=== PATIENT | female | born 1970 | race Caucasian/White ===

== ENCOUNTER → 2021-08-18 11:08 | Outpatient (CLI) | payer BC, SELFPAY ==
[2021-08-18 12:26] LABS: Color, Urine Yellow (Yellow); Glucose, Dipstick Normal (Normal); Ketone-Dipstick Negative (Negative); Leukocyte Esterase-Dipstick Negative /ul (Negative); Nitrite-Dipstick Negative (Negative); Occult Blood-Urine 250 /ul (Negative); Protein-Dipstick 30 mg/dl (Negative); Specific Gravity, Urine 1.015 (1.002-1.030); Urine Bilirubin Dipstick Negative (Negative); Urine Clarity Cloudy (Clear); Urine Urobilinogen Normal (Normal)
[2021-08-18 12:27] LABS: Absolute Lymphocyte Count 1.69 X10^3/uL (0.83-4.51); Basophil# 0.04 X10^3/uL; Basophil% 0.4 % (0-1); Eosinophil# 0.05 X10^3/uL; Eosinophils% 0.5 % (0-5); Hematocrit 41.2 % (37-47); Hemoglobin 13.4 g/dL (12.0-15.0); Lymphocyte # 1.69 X10^3/ul (0.83-4.51); Lymphocyte % 18.4 % (19-41); Mean Corp Hgb Conc 32.5 g/dL (32-36); Mean Corpuscular Hgb 27.6 pg (27.0-32.0); Mean Corpuscular Volume 84.9 fL (81-99); Mean Platelet Vol. 10.3 fl (6.2-12.0); Monocyte% 4.3 % (0-10); NRBC Flagged by Analyzer 0 % (0-5); Neutrophil # 6.98 X10^3/uL (2.7-7.7); Platelet Count 262 K/mm3 (150-450); RBC Distribution Width CV 14.1 % (11.6-14.6); RBC Distribution Width SD 43.4 fl (35.1-43.9); Red Blood Count 4.85 M/mm3 (4.2-5.4); White Blood Count 9.2 K/mm3 (4.4-11.0)
[2021-08-18 12:36] LABS: Bacteria 1+ /hpf (None Seen); Mucous, Urine 1+ /hpf (<or=2+); Red Blood Cells-Urine 5-10 SEEN /hpf (0-5); Squamous Epithelial Cells - UA 0-5 SEEN /hpf (5-10); White Blood Cells 0-5 SEEN /hpf (0-5)
[2021-08-18 12:59] LABS: ALB/GLOB Ratio 0.9 RATIO (0.9-2.4); AST(SGOT) 17 U/L (15-37); Alanine Aminotransfer ALT/SGPT 25 U/L (13-56); Albumin, Serum 3.7 g/dL (3.2-5.0); Alkaline Phosphatase 73 U/L (45-117); Anion Gap 7 (5-15); BUN 16 mg/dL (7-18); BUN/Creat Ratio 16.7 RATIO (10-20); Calcium,Total 8.8 mg/dL (8.5-10.1); Chloride 104 mmol/L (98-107); Cholesterol 224 mg/dL (200); Creatinine, Serum 0.96 mg/dL (0.55-1.02); EST Glomerular Filtration Rate 65 mL/min (>60); Est Glom Filt Rate - Afr Amer 79 mL/min (>60); Globulin 4.1 g/dL (2.2-4.2); Glucose 81 mg/dL (74-106); High Density Lipoprotein 41 mg/dL; Potassium 4.1 mmol/L (3.5-5.1); Protein, Total 7.8 g/dL (6.4-8.2); Sodium Level 139 mmol/L (136-145); Triglycerides 241 mg/dL; Very Low Density Lipoprotein 48 mg/dL (5-40)
== END ==
PROVIDERS: PCP Internal Medicine; Referring Provider Internal Medicine; Visit Provider Internal Medicine
DX: Z00.00 Encounter for general adult medical examination without abnormal findings (principal)
CPT/HCPCS: 36415; 80053; 80061; 81001; 85025

== ENCOUNTER → 2021-10-06 07:20 | Outpatient (CLI) | payer BC, SELFPAY ==
--- NOTE | 2021-10-06 07:32 | BI_ITS ---
MAMMOGRAPHY - BILATERAL SCREENING REASON FOR EXAM: Female, 51 years old. Routine annual screening examination. PERTINENT HISTORY: Mother with breast cancer. Grandmother with breast cancer. TECHNIQUE: Digital bilateral breast devin (3D mammographic acquisition) in the CC and MLO projections. 2-D mediolateral oblique (MLO) and craniocaudad (CC) views of both breasts were obtained. CAD: Full Field Digital Mammography with Computer Added Detection was performed. COMPARISON: Comparison is made with prior study dated 09/22/2020. FINDINGS: Breast Composition: There are scattered areas of fibroglandular density. There are no dominant masses or suspicious calcifications. No other significant abnormalities are identified. There has been no significant change since the prior study. BI/SCRN MAMM (CAD)W/DEVIN BILAT IMPRESSION: Stable bilateral screening mammogram. Yearly follow-up mammogram recommended. (A) ASSESSMENT CATEGORY: BIRADS Category 1: Negative. A letter regarding these results will be sent to the patient by the facility within 30 days. Approximately 10% of breast cancers are not detected by mammography. A normal mammogram should not delay biopsy of a clinically suspicious abnormality. [id number] Electronically Signed: Sánchez Crocker MD at 13:47 EST , Service support ,
== END ==
PROVIDERS: PCP Internal Medicine; Referring Provider Internal Medicine; Visit Provider Internal Medicine
DX: Z12.31 Encounter for screening mammogram for malignant neoplasm of breast (principal)
CPT/HCPCS: 77063; 77067

== ENCOUNTER → 2022-04-13 | Outpatient (CLI) | payer BC, SELFPAY ==
[2022-04-13 12:32] LABS: Anion Gap 4 (5-15); BUN 23 mg/dL (7-18); BUN/Creat Ratio 21.3 RATIO (10-20); Calcium,Total 9.1 mg/dL (8.5-10.1); Chloride 107 mmol/L (98-107); Creatinine, Serum 1.08 mg/dL (0.55-1.02); EST Glomerular Filtration Rate 57 mL/min (>60); Est Glom Filt Rate - Afr Amer 69 mL/min (>60); Glucose 97 mg/dL (74-106); Sodium Level 138 mmol/L (136-145)
== END | disposition home or self-care (01) ==
LOC: BIMLAB 08:25
PROVIDERS: PCP Internal Medicine; Referring Provider Internal Medicine; Visit Provider Internal Medicine
DX: I10 Essential (primary) hypertension (principal)
CPT/HCPCS: 36415; 80048

== ENCOUNTER → 2022-08-27 | Outpatient (CLI) | payer BC, SELFPAY ==
[2022-08-27 12:12] LABS: Absolute Lymphocyte Count 1.75 X10^3/uL (0.83-4.51); Absolute Neutrophil Count 3.7 X10^3/uL (2.0-7.7); Basophil# 0.05 X10^3/uL; Basophil% 0.8 % (0-1); Eosinophil# 0.06 X10^3/uL; Hematocrit 40.8 % (37-47); Hemoglobin 13.1 g/dL (12.0-15.0); Lymphocyte # 1.75 X10^3/ul (0.83-4.51); Lymphocyte % 29.5 % (19-41); Mean Corp Hgb Conc 32.1 g/dL (32-36); Mean Corpuscular Hgb 28.5 pg (27.0-32.0); Mean Corpuscular Volume 88.7 fL (81-99); Mean Platelet Vol. 10.4 fl (6.2-12.0); Monocyte# 0.31 X10^3/uL; Monocyte% 5.2 % (0-10); NRBC Flagged by Analyzer 0 % (0-5); Neutrophil # 3.74 X10^3/uL (2.7-7.7); Neutrophil % 63.2 % (47-70); Platelet Count 290 K/mm3 (150-450); RBC Distribution Width CV 14.6 % (11.6-14.6); RBC Distribution Width SD 46.9 fl (35.1-43.9); White Blood Count 5.9 K/mm3 (4.4-11.0)
[2022-08-27 12:23] LABS: ALB/GLOB Ratio 0.8 RATIO (0.9-2.4); AST(SGOT) 28 U/L (15-37); Alanine Aminotransfer ALT/SGPT 38 U/L (13-56); Albumin, Serum 3.5 g/dL (3.2-5.0); Alkaline Phosphatase 81 U/L (45-117); Anion Gap 8 (5-15); BUN 20 mg/dL (7-18); Calcium,Total 9.1 mg/dL (8.5-10.1); Chloride 104 mmol/L (98-107); Cholesterol 191 mg/dL (200); Creatinine, Serum 1.05 mg/dL (0.55-1.02); EST Glomerular Filtration Rate 59 mL/min (>60); Est Glom Filt Rate - Afr Amer 71 mL/min (>60); Globulin 4.2 g/dL (2.2-4.2); Glucose 93 mg/dL (74-106); High Density Lipoprotein 37 mg/dL; Potassium 3.8 mmol/L (3.5-5.1); Protein, Total 7.7 g/dL (6.4-8.2); Sodium Level 139 mmol/L (136-145); Triglycerides 229 mg/dL; Very Low Density Lipoprotein 46 mg/dL (5-40)
== END | disposition home or self-care (01) ==
LOC: BIMLAB 08:27
PROVIDERS: PCP Internal Medicine; Referring Provider Internal Medicine; Visit Provider Internal Medicine
DX: Z00.00 Encounter for general adult medical examination without abnormal findings (principal)
CPT/HCPCS: 36415; 80053; 80061; 85025

== ENCOUNTER → 2022-10-19 | Outpatient (CLI) | payer BC, SELFPAY ==
--- NOTE | 2022-10-19 07:16 | BI_ITS ---
MAMMOGRAPHY - BILATERAL SCREENING REASON FOR EXAM: Female, 52 years old. Routine annual screening examination. PERTINENT HISTORY: Mother with breast cancer. Grandmother with breast cancer. TECHNIQUE: Digital bilateral breast devin (3D mammographic acquisition) in the CC and MLO projections. 2-D mediolateral oblique (MLO) and craniocaudad (CC) views of both breasts were obtained. CAD: Full Field Digital Mammography with Computer Added Detection was performed. COMPARISON: Comparison is made with prior study dated 10/06/2021. FINDINGS: Breast Composition: There are scattered areas of fibroglandular density. There are no dominant masses or suspicious calcifications. No other significant abnormalities are identified. There has been no significant change since the prior study. BI/SCRN MAMM (CAD)W/DEVIN BILAT IMPRESSION: Stable bilateral screening mammogram. Yearly follow-up mammogram recommended. (A) ASSESSMENT CATEGORY: BIRADS Category 1: Negative. A letter regarding these results will be sent to the patient by the facility within 30 days. Approximately 10% of breast cancers are not detected by mammography. A normal mammogram should not delay biopsy of a clinically suspicious abnormality. [id number] Electronically Signed: Sánchez Crocker MD at 9:06 EST ,
== END | disposition home or self-care (01) ==
PROVIDERS: PCP Internal Medicine; Referring Provider Internal Medicine; Visit Provider Internal Medicine
DX: Z12.31 Encounter for screening mammogram for malignant neoplasm of breast (principal); Z80.3 Family history of malignant neoplasm of breast
CPT/HCPCS: 77063; 77067

== ENCOUNTER → 2022-11-23 | Outpatient (CLI) | payer BC, SELFPAY ==
[2022-11-29 21:51] LABS: HPV APTIMA, High Risk Negative (Negative)
== END | disposition home or self-care (01) ==
LOC: LABSPEC 16:11
PROVIDERS: PCP Internal Medicine; Visit Provider Obstetrics & Gynecology
DX: Z12.4 Encounter for screening for malignant neoplasm of cervix (principal)
CPT/HCPCS: 87624; 88175; G0145

== ENCOUNTER → 2022-11-30 | Outpatient (CLI) | payer BC, SELFPAY | END | disposition home or self-care (01) | PROVIDERS: PCP Internal Medicine; Referring Provider Internal Medicine; Visit Provider Internal Medicine | DX: R05.9 Cough, unspecified (principal) | CPT/HCPCS: 87635; U0003; U0005 ==

== ENCOUNTER → 2023-03-08 | Outpatient (CLI) | payer BC, SELFPAY ==
[2023-03-08 12:13] LABS: Anion Gap 2 (5-15); BUN 19 mg/dL (7-18); Calcium,Total 8.9 mg/dL (8.5-10.1); Chloride 109 mmol/L (98-107); EST Glomerular Filtration Rate 62 mL/min (>60); Est Glom Filt Rate - Afr Amer 75 mL/min (>60); Glucose 106 mg/dL (74-106); Potassium 4.2 mmol/L (3.5-5.1); Sodium Level 139 mmol/L (136-145)
== END | disposition home or self-care (01) ==
LOC: BIMLAB 08:59
PROVIDERS: PCP Internal Medicine; Referring Provider Internal Medicine; Visit Provider Internal Medicine
DX: I10 Essential (primary) hypertension (principal)
CPT/HCPCS: 36415; 80048

== ENCOUNTER → 2023-12-27 | Outpatient (CLI) | payer BC, SELFPAY ==
--- OUTSIDE RECORDS SUMMARY | 2023-12-27 16:36 | XMS RPT_ITS | CCD ---
Author Name Unknown Address [address] [place] [address] Organization [facility] Care Team Providers Care Loss Prevention Lead Name Role Phone Unavailable Primary Care Provider Unavailabl e Results Test Name Value Interpretation Reference Range Facil ity Encounters Encounter Date Encounter Type Care Provider Facility Start: 09-28-2021 Patient encounter procedure Kiarra Guzman MD Work Phone: [facility] Start: 09-28-2021 Progress Note Kiarra cornejo MD Work Phone: [facility] Procedures Date Procedure Procedure Detail Performing Clinician Start: 09-26-2021 Ecg routine ecg w/le ast 12 lds i&r only Social History Date Type Detail Facility Tobacco smoking stat [facility] Tobacco smoking consumption unknown [facility] Start: 1970 Sex Assigned At Not on file [facility] History of Present illness Narrative 09-28-2021 Kiarra Guzman MD - 09/28/2021 12:35 PM EST Note Date & Type Note Facility 09-28-2021 History of Present illness Narrative DATE OF SERVICE: 09/26/2021 SUBJECTIVE: A 51-year-old with history of asthma and high blood pressure who presents for high blood pressure at home, racing heart rate, headache, a little bit of dizziness. It has been going for a week. She noticed the past weekend the bottom number of her blood pressure was high. It would go up to at least 100 but the top number, the systolic was in the 130s. She experienced a racing heart rate this morning. Upon further questioning she did use her albuterol inhaler as well this morning. She has a little chest congestion and a little cough productive of clear sputum. The dizziness has been going on on and off for the past week as well as well as a headache and usually Tylenol helps the headache. REVIEW OF SYSTEMS: Otherwise negative unless stated above. ALLERGIES: SULFA, PENICILLIN. MEDICATIONS: 1. Tylenol. 2. Lisinopril. 3. Albuterol. 4. Stress tension relief. OBJECTIVE: Blood pressure is 161/85, pulse is 105, respirations 20, temperature is 99.3, pulse ox 99%. Ears within normal limits. Mouth; nonerythematous oropharynx. Neck: No lymphadenopathy. Heart: Regular, rate, and rhythm. Lungs: Clear to auscultation bilaterally. DIAGNOSIS: 1. High blood pressure. 2. Tachycardia. PLAN: EKG showed normal sinus rhythm. Her ventricular rate was 91. I told her to continue with tqbs-phl-bpeksiq medications for congestion. She also needs to follow with her primary care doctor if her blood pressure has been high recently. They may need to increase her current blood pressure medication dose. Also, educated the patient on the use of albuterol and how it can make her heart race. The patient was not aware of this. She says that she does not use often either. Kprl-hwu-bpbxiff medication for her symptoms and follow up with primary care doctor as soon as possible for followup of hypertension. Kiarra Guzman MD ED/[id number] [facility] File#: [id number] END OF DOCUMENT / CHANGE LOG FOLLOWS Last Edited By [employer]. Signed By Kiarra Guzman MD, Eleni MD #[email or web address] on 09/29/2021 07:56 ET on 09/29/2021 07:56 ET Revision Number - 2 ^^^ Verified/Reviewed by 09/29/21 [id number] [facility] PATIENT NAME: DION MENON[address] [facility] [address] MEDICAL REC #: [id number] [place] [id number] [place] [facility] PHYSICIAN documented in this encounter [facility] Summary Purpose Family History No Family History Records Found Advance Directives No Advanced Directives Records Found Additional Source Comments INFORMATION SOURCE (unrecogn ized section and content) Source Comments (unrecognize d section and content) In the event this informatio n is protected by the Federal Confidentiality of Alcohol and Drug Abuse Patient Records regulations: The Federal rules restrict any use of the information to criminally investigate or prosecute any alcohol or drug abuse patient.[facility] FOR RECORDS PERTAINING TO PATIENTS WHO ARE OR HAVE BEEN ENROLLED IN A CHEMICAL DEPENDENCY/SUBSTANCEABUSE PROGRAM, SOME INFORMATION MAY BE OMITTED. This clinical summary was aggregated from multiple sources. Caution should be exercised in using it in the provision of clinical care. This summary normalizes information from multiple sources, and as a consequence, information in this document may materially change the coding, format and clinical context of patient data. In addition, data may be omitted in some cases. CLINICAL DECISIONS SHOULD BE BASED ON THE PRIMARY CLINICAL RECORDS. [facility] [employer] [facility]. provides no warranty or guarantee of the accuracy or completeness of information in this document.
[2023-12-27 17:15] LABS: Absolute Lymphocyte Count 1.89 X10^3/uL (0.83-4.51); Basophil# 0.04 X10^3/uL; Basophil% 0.5 % (0-1); Eosinophil# 0.07 X10^3/uL; Eosinophils% 0.9 % (0-5); Hematocrit 43.1 % (37-47); Hemoglobin 13.5 g/dL (12.0-15.0); Lymphocyte # 1.89 X10^3/ul (0.83-4.51); Lymphocyte % 25.4 % (19-41); Mean Corp Hgb Conc 31.3 g/dL (32-36); Mean Corpuscular Hgb 27.2 pg (27.0-32.0); Mean Corpuscular Volume 86.7 fL (81-99); Mean Platelet Vol. 10.8 fl (6.2-12.0); Monocyte# 0.37 X10^3/uL; NRBC Flagged by Analyzer 0 % (0-5); Neutrophil # 5.03 X10^3/uL (2.7-7.7); Neutrophil % 67.8 % (47-70); Platelet Count 269 K/mm3 (150-450); RBC Distribution Width CV 15.1 % (11.6-14.6); RBC Distribution Width SD 48.3 fl (35.1-43.9); Red Blood Count 4.97 M/mm3 (4.2-5.4); White Blood Count 7.4 K/mm3 (4.4-11.0)
[2023-12-27 17:39] LABS: ALB/GLOB Ratio 1.1 RATIO (0.9-2.4); AST(SGOT) 20 U/L (15-37); Alanine Aminotransfer ALT/SGPT 28 U/L (13-56); Albumin, Serum 3.9 g/dL (3.2-5.0); Alkaline Phosphatase 79 U/L (45-117); Anion Gap 5 (5-15); BUN 26 mg/dL (7-18); BUN/Creat Ratio 19.1 RATIO (10-20); Calcium,Total 9.2 mg/dL (8.5-10.1); Chloride 106 mmol/L (98-107); Cholesterol 213 mg/dL (200); Creatinine, Serum 1.36 mg/dL (0.55-1.02); EST Glomerular Filtration Rate 43 mL/min (>60); Est Glom Filt Rate - Afr Amer 52 mL/min (>60); Globulin 3.7 g/dL (2.2-4.2); Glucose 100 mg/dL (74-106); High Density Lipoprotein 44 mg/dL; Protein, Total 7.6 g/dL (6.4-8.2); Rheumatoid Factor < 10.0 IU/mL (<15); Sodium Level 139 mmol/L (136-145); Triglycerides 274 mg/dL; Very Low Density Lipoprotein 55 mg/dL (5-40)
[2023-12-27 17:44] LABS: Erythrocyte Sedimentation Rate 16 mm/hr (0-30)
[2023-12-30 13:07] LABS: CCP IgG Antibodies 8 units (0-19)
== END | disposition home or self-care (01) ==
LOC: BIMLAB 14:57
PROVIDERS: PCP Internal Medicine; Referring Provider Internal Medicine; Visit Provider Internal Medicine
DX: I10 Essential (primary) hypertension (principal); M19.90 Unspecified osteoarthritis, unspecified site
CPT/HCPCS: 36415; 80053; 80061; 85025; 85652; 86200; 86431

== ENCOUNTER → 2024-01-24 | Outpatient (CLI) | payer BC, SELFPAY ==
--- NOTE | 2024-01-24 08:58 | BI_ITS ---
MAMMOGRAPHY - BILATERAL SCREENING 3-D TOMOSYNTHESIS REASON FOR EXAM: Female, 53 years old. Breast cancer screening PERTINENT HISTORY: No significant family history. TECHNIQUE: 2-D mammograms and 3-D Tomosynthesis of the breast (s) were performed. CAD was performed. COMPARISON: 10/19/2022 FINDINGS: The breast composition is heterogeneously dense that can obscure small breast masses. Scattered benign calcifications are seen. No dense spiculated masses or suspicious microcalcifications are identified. No architectural distortion is identified. There is no skin thickening or retraction. There has been no significant change since the prior study. BI/SCRN MAMM (CAD)W/DEVIN BILAT IMPRESSION: No mammographic signs of malignancy. Routine yearly mammograms recommended. ASSESSMENT CATEGORY: BIRADS Category 1: Negative. A letter regarding these results will be sent to the patient by the facility within 30 days. FOLLOW UP RECOMMENDATION: Yearly follow up mammogram recommended. (A) Approximately 10% of breast cancers are not detected by mammography. A normal mammogram should not delay biopsy of a clinically suspicious abnormality. Electronically Signed: Angel Muse MD at 14:02 EST ,
--- OUTSIDE RECORDS SUMMARY | 2024-01-24 09:30 | XMS RPT_ITS | CCD ---
Author Name Unknown Address [address] [place] [address] Organization [facility] Care Team Providers Care Machine Filler Shredder Name Role Phone Unavailable Primary Care Provider Unavailabl e Results Test Name Value Interpretation Reference Range Facil ity Encounters Encounter Date Encounter Type Care Provider Facility Start: 09-28-2021 Patient encounter procedure Kiarra Guzman MD Work Phone: [facility] Start: 09-28-2021 Progress Note Kiarra cornejo MD Work Phone: [facility] Procedures Date Procedure Procedure Detail Performing Clinician Start: 09-26-2021 Ecg routine ecg w/le ast 12 lds i&r only Social History Date Type Detail Facility Tobacco smoking stat [facility] Tobacco smoking consumption unknown [facility] Start: 1970 Sex Assigned At Not [...] 91. I told her to continue with cjys-lkg-efoowow medications for congestion. She also needs to [...] that she does not use often either. Thtx-bkc-evpdogu medication for her symptoms and follow up with primary care doctor as soon as possible for followup of hypertension. Kiarra Guzman MD ED/[id number] [facility] File#: [id number] END OF DOCUMENT / CHANGE LOG FOLLOWS Last Edited By [employer]. Signed By Kiarra Guzman MD, Eleni MD #[email or web address] on 09/29/2021 07:56 ET on 09/29/2021 07:56 ET Revision Number - 2 ^^^ Verified/Reviewed by 09/29/21 [id number] [facility] PATIENT NAME: DION MENON0 [facility] [address] MEDICAL REC #: [id number] [place] [address] [place] [facility] PHYSICIAN documented in this encounter [facility] Summary Purpose Family History No Family [...] or prosecute any alcohol or drug abuse patient.[facility] FOR RECORDS PERTAINING TO PATIENTS WHO [...] BE BASED ON THE PRIMARY CLINICAL RECORDS. [facility] [employer] [facility]. provides no warranty or guarantee of the accuracy or completeness of information in this document.
== END | disposition home or self-care (01) ==
LOC: OPBI 08:57
PROVIDERS: PCP Internal Medicine; Referring Provider Internal Medicine; Visit Provider Internal Medicine
DX: Z12.31 Encounter for screening mammogram for malignant neoplasm of breast (principal)
CPT/HCPCS: 77063; 77067

== ENCOUNTER → 2024-02-07 | Outpatient (CLI) | payer BC, SELFPAY ==
[2024-02-07 12:29] LABS: Anion Gap 6 (5-15); BUN 25 mg/dL (7-18); BUN/Creat Ratio 23.6 RATIO (10-20); Calcium,Total 9.1 mg/dL (8.5-10.1); Chloride 104 mmol/L (98-107); Creatinine, Serum 1.06 mg/dL (0.55-1.02); EST Glomerular Filtration Rate 58 mL/min (>60); Est Glom Filt Rate - Afr Amer 70 mL/min (>60); Glucose 88 mg/dL (74-106); Potassium 3.8 mmol/L (3.5-5.1); Sodium Level 136 mmol/L (136-145)
== END | disposition home or self-care (01) ==
LOC: BIMLAB 08:08
PROVIDERS: PCP Internal Medicine; Referring Provider Internal Medicine; Visit Provider Internal Medicine
DX: I10 Essential (primary) hypertension (principal)
CPT/HCPCS: 36415; 80048

== ENCOUNTER → 2024-09-28 | Outpatient (CLI) | payer BC, SELFPAY | END | disposition home or self-care (01) | PROVIDERS: PCP Internal Medicine; Referring Provider Physician Assistant; Visit Provider Physician Assistant | DX: M25.511 Pain in right shoulder (principal) | CPT/HCPCS: 73030 ==

== ENCOUNTER → 2024-10-24 | Outpatient (CLI) | payer BC, SELFPAY ==
--- NOTE | 2024-10-24 07:29 | MRI_ITS ---
STUDY: MRI RIGHT SHOULDER REASON FOR EXAM: Female, 54 years old. Right shoulder strain. Painful to lift weight x 1 month. TECHNIQUE: Standardized fat and water weighted pulse sequences were obtained in all 3 orthogonal planes. COMPARISON: Right shoulder radiographs dated 09/28/2024. FINDINGS: There is a moderate grade partial thickness articular surface tear of the distal supraspinatus tendon, overall measuring 8 mm in length (coronal T2 series 7 images 10-12) and 9 mm in width (axial T2 series 4 image 7). Normal infraspinatus tendon. Normal subscapularis tendon. Normal teres minor tendon. Normal supraspinatus muscle. Normal infraspinatus muscle. Normal subscapularis muscle. Normal teres minor muscle. Normal glenohumeral articulation. Normal humeral head and visualized proximal humerus. Normal biceps labral complex. Normal intracapsular long biceps tendon. Normal labrum. Normal capsulo-ligamentous complex. Normal rotator interval. There is hypertrophic acromioclavicular arthrosis, with inferior osteophyte formation, with mild effacement of the supraspinatus myotendinous junction (coronal T2 series 7 images 7-8). There is a Type II morphology (curved), with a neutral orientation. There is a small amount of subacromial-subdeltoid bursal fluid. Normal visualized coracohumeral and coracoacromial ligaments. Normal quadrilateral space. Normal axillary space. Normal deltoid muscle. Normal trapezius muscle. MRI/Upper Ext Joint Only(Routine) IMPRESSION: 8 x 9 mm moderate grade partial thickness articular surface tear of the distal supraspinatus tendon. Hypertrophic acromioclavicular arthrosis, with inferior osteophyte formation, with mild effacement of the supraspinatus myotendinous junction. Mild subacromial-subdeltoid bursitis. Electronically Signed: Nazario Hughes MD at 15:30 EST ,
== END | disposition home or self-care (01) ==
LOC: MRI 07:20
PROVIDERS: PCP Internal Medicine; Referring Provider Physician Assistant; Visit Provider Physician Assistant
DX: S46.011A Strain of muscle(s) and tendon(s) of the rotator cuff of right shoulder, initial encounter (principal); X58.XXXA Exposure to other specified factors, initial encounter
CPT/HCPCS: 73221

== ENCOUNTER 2024-12-07 15:30 | Outpatient (RCR) | payer BC, SELFPAY ==
--- NOTE | 2024-11-06 10:26 | HP.PTEVAL_ITS ---
Patient's Visit Information Visit Information Visit Information: WALLACE BAEZ is a 54 year old F referred to Physical Therapy by Dr. Dylon Culp MD with a diagnosis of R shoulder pain/R RC tear. Date of Evaluation: 11/06/24 Physical Therapist: MAYRA Workman Visit Plan Frequency: 2x /Week Duration: 2 Months Plan: +++NEED QUICK DASH+++ 2X/ week for 8 weeks for R shoulder PROM, AAROM, AROM, scapular and RC strength, postural exercises/education with HEP HEP: supine wand flexion, standing wand IR, and green band mid rows Subjective Subjective: She did something to her R shoulder and it hurt for a month and then she was tearing a piece of paper and then it really started to hurt. It hurts when she lifts her R arm up to drink coffee or wash hair. It is sharp pain. Lately it is a dull ache most of the time and hurts more with movements. She got a cortisone shot and 6 weeks of therapy. There was an MRI and x-ray before seeing him. There is a small tear (8mm) and arthritis and bursitis. The cortisone shot helped 20-30% not as sharp of a pain but is still there. She just got the shot this past Saturday. She can not sleep on her R shoulder. She sleeps ok if she sleeps on her L shoulder. 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 did not do empty can as imaging shows a small tear Goals Goal 1:: I HEP Goal Time Frame: 6-8 Weeks Goal 2:: Increase R shoulder AROM (R shoulder flex 106 and L 140 R shoulder ABD 145 and L 159 R shoulder IR T12 and L T8 R shoulder ER 45 and L 54). Goal Time Frame: 6-8 Weeks Goal 3:: Increase R shoulder strength (at the time of the eval: Rshoulder MMT: 6 and L 7 L shoulder ABD 6 and L 6.5 R shoulder ER 5.7 and L 8 R shoulder IR 6.4 and L 6.5) Goal Time Frame: 6-8 Weeks Goal 4:: Be able to use R hand to do hair without pain Goal Time Frame: 6-8 Weeks Rehabilitation Potential Rehabilitation Potential: Good Anticipated Interventions Patient/Client Instruction: Educate patient on: Condition and Plan of Care For the Purpose of:: To decrease pain, To decrease swelling/inflammation, To increase ROM, To improve nutrient delivery to tissue, To improve muscle performance and motor function, To improve ability to perform ADL's, To increase tolerance to activity/condition/position, To improve performance and independence with ADL's, To decrease level of supervision to perform tasks, To improve ability of physical actions for home/community/work/leisure, To improve health of tissue, To decrease soft tissue restriction and To increase flexi bility/ROM Therapeutic Exercise to Include: Strength training, Body mechanics, Postural training, Flexibilty training, Passive ROM, Active ROM and Scapular Strength/Stabilization For the Purpose of:: To decrease pain, To increase ROM, To improve nutrient delivery to tissue, To improve muscle performance and motor function, To improve ability to perform ADL's, To improve performance and independence with ADL's, To decrease level of supervision to perform tasks, To improve health of tissue, To decrease soft tissue restriction and To increase flexibility/ROM Manual Therapy Techniques to Include: Passive ROM For the Purpose of:: To decrease swelling/inflammation, To increase ROM and To improve nutrient delivery to tissue IF ES: Yes Cryotherapy (ice pack, ice massage): Yes Thermo therapy (hot pack): Yes Ultrasound (thermal/non thermal): Yes For the Purpose of:: To decrease pain, To decrease swelling/inflammation, To increase ROM, To improve nutrient delivery to tissue and To improve muscle performance and motor function Text: Thank you for the opportunity to evaluate your patient. For Medicare and Medicare HMO plans, please review the plan of care and approve it. It will need to be FAXED BACK to us at [phone] for Medicare purposes. For Medicare only, by signing this I certify the plan of care. Please let me know if there are questions or concerns regarding this plan of care. Physician Signature: Date:
--- NOTE | 2024-12-07 16:05 | HP.PTDCSUM ---
Discharge Summary D/C summary: It has been my pleasure to treat WALLACE BAEZ referred by Dr. Dylon Culp MD, with the diagnosis of R shoulder pain/R RC tear for a total of 8 visit(s). Discharge Date: 12/07/24 Please see the following information for a summary of their discharge status. Subjective Subjective: Once in while when washing her hair or cutting her food she will get the twinges. She moved some things out of a house this weekend and she was not in any pain. She feels that she can do some PT at home. Pain R shoulder pain: Pain Intensity (Out of 10): 3 Overall Improvement % Improvement: 60 Objective Objective/Function: AROM R shoulder flex 146 and L 140 R shoulder ABD 170 and L 159 R shoulder IR T6 and L T8 R shoulder ER 45 and L 54 MMT R shoulder MMT: 9.1 and L 7 L shoulder ABD 8.5 and L 6.5 R shoulder ER 7.8 and L 8 R shoulder IR 8.5 and L 6.5 Goals Goal 1:: I HEP Goal Progress: Goal Met Goal 2:: Increase R shoulder AROM (R shoulder flex 106 and L 140 R shoulder ABD 145 and L 159 R shoulder IR T12 and L T8 R shoulder ER 45 and L 54). Goal Progress: Goal Met Goal 3:: Increase R shoulder strength (at the time of the eval: Rshoulder MMT: 6 and L 7 L shoulder ABD 6 and L 6.5 R shoulder ER 5.7 and L 8 R shoulder IR 6.4 and L 6.5) Goal Progress: Goal Met Goal 4:: Be able to use R hand to do hair without pain Goal Progress: Progressing Plan Plan: DC PT to HEP per pt request. She will contact if doing PT at home is not working. Issued HEP with pictures and bands D/C Information Discharge Comments: DC PT to HEP d/c sentence: If there are questions or concerns regarding this patient's physical therapy, please feel free to call me at [phone]. Thank you for the referral of this patient. Sincerely, Christin Mares, MPT Balance/Gait/Functional tests Balance/Special Test Scores Quick DASH Score: 43.1800 Improvement % Improvement: 60
== END 2024-12-07 19:00 | disposition home or self-care (01) ==
LOC: PT 15:30
PROVIDERS: PCP Nurse Practitioner Family; Referring Provider Orthopaedic Surgery Sports Medicine; Visit Provider Orthopaedic Surgery Sports Medicine
DX: M25.511 Pain in right shoulder (principal); M75.101 Unspecified rotator cuff tear or rupture of right shoulder, not specified as traumatic
CPT/HCPCS: 97110; 97161; 97530

== ENCOUNTER → 2024-12-25 | Outpatient (CLI) | payer BC, SELFPAY ==
[2024-12-25 15:24] LABS: Absolute Lymphocyte Count 1.94 X10^3/uL (0.83-4.51); Basophil# 0.06 X10^3/uL; Basophil% 0.7 % (0-1); Eosinophil# 0.04 X10^3/uL; Eosinophils% 0.5 % (0-5); Hemoglobin 13.7 g/dL (12.0-15.0); Lymphocyte # 1.94 X10^3/ul (0.83-4.51); Lymphocyte % 22.9 % (19-41); Mean Corp Hgb Conc 32.6 g/dL (32-36); Mean Corpuscular Hgb 28.7 pg (27.0-32.0); Mean Corpuscular Volume 88.1 fL (81-99); Mean Platelet Vol. 10.4 fl (6.2-12.0); Monocyte# 0.43 X10^3/uL; Monocyte% 5.1 % (0-10); NRBC Flagged by Analyzer 0 % (0-5); Neutrophil # 5.96 X10^3/uL (2.7-7.7); Neutrophil % 70.3 % (47-70); Platelet Count 322 K/mm3 (150-450); RBC Distribution Width CV 14.6 % (11.6-14.6); RBC Distribution Width SD 47.2 fl (35.1-43.9); Red Blood Count 4.77 M/mm3 (4.2-5.4); White Blood Count 8.5 K/mm3 (4.4-11.0)
[2024-12-25 15:51] LABS: AST(SGOT) 14 U/L (15-37); Alanine Aminotransfer ALT/SGPT 22 U/L (13-56); Albumin, Serum 3.7 g/dL (3.2-5.0); Alkaline Phosphatase 76 U/L (45-117); Anion Gap 7 (5-15); BUN 18 mg/dL (7-18); Calcium,Total 9.1 mg/dL (8.5-10.1); Chloride 103 mmol/L (98-107); EST Glomerular Filtration Rate 50 mL/min (>60); Est Glom Filt Rate - Afr Amer 60 mL/min (>60); Globulin 3.6 g/dL (2.2-4.2); Glucose 113 mg/dL (74-106); Potassium 4.3 mmol/L (3.5-5.1); Protein, Total 7.3 g/dL (6.4-8.2); Sodium Level 138 mmol/L (136-145)
== END | disposition home or self-care (01) ==
LOC: BFHLAB 13:28
PROVIDERS: PCP Nurse Practitioner Family; Visit Provider Nurse Practitioner Family
DX: I10 Essential (primary) hypertension (principal)
CPT/HCPCS: 36415; 80053; 85025

== ENCOUNTER → 2025-02-05 | Outpatient (CLI) | payer BC, SELFPAY ==
--- NOTE | 2025-02-05 08:37 | BI_ITS ---
EXAM: SCRN MAMM (CAD)W/DEVIN BILAT 02/05/2025 CLINICAL HISTORY: F, Age 54 y/o , SCREENING. Family history of breast cancer in her mother at age 50 and paternal grandmother at age 65. TECHNIQUE: Bilateral Diagnostic digital breast tomosynthesis with 2D and 3D images. Computer aided detection. COMPARISON: Prior exam(s) dated 01/24/2024, 10/19/2022, 10/06/2021. FINDINGS: TISSUE DENSITY: The breast tissue is composed of scattered area of fibroglandular density. Bilateral Breast Mammographic Findings: No significant masses, calcifications or other abnormalities are identified. BI/SCRN MAMM (CAD)W/DEVIN BILAT IMPRESSION: There is no mammographic evidence of malignancy. OVERALL FINAL ASSESSMENT: BIRADS 1 NEGATIVE. RECOMMENDATION: Routine annual follow-up in 1 Year A letter with findings and recommendations will be mailed to the patient. Reading Location: [id number]
== END | disposition home or self-care (01) ==
LOC: OPBI 08:34
PROVIDERS: PCP Nurse Practitioner Family; Referring Provider Nurse Practitioner Family; Visit Provider Nurse Practitioner Family
DX: Z12.31 Encounter for screening mammogram for malignant neoplasm of breast (principal)
CPT/HCPCS: 77063; 77067

== ENCOUNTER → 2025-03-19 | Outpatient (CLI) | payer BC, SELFPAY ==
--- NOTE | 2025-03-19 13:06 | RAD_ITS ---
PROCEDURE: CHEST PA AND LATERAL (RADCXR), 03/19/2025 REASON FOR EXAM: COUGH TECHNIQUE: PA and lateral views of the chest were obtained. COMPARISON: None FINDINGS: Heart: Unremarkable. Mediastinum: Unremarkable. Lungs/pleura: Slight hypoinflation with vascular crowding. No convincing focal consolidation. No pleural effusion or visible pneumothorax. Bones: Mild spondylosis. Lines and support devices: None. Other: None. RAD/Chest PA and Lateral IMPRESSION: 1. Slight hypoinflation without convincing or visible acute cardiopulmonary fin dings 2. Additional description as above. Reading Location: [id number]
== END | disposition home or self-care (01) ==
LOC: MTRAD 13:06
PROVIDERS: PCP Nurse Practitioner Family; Referring Provider Physician Assistant Surgical; Visit Provider Physician Assistant Surgical
DX: R05.9 Cough, unspecified (principal)
CPT/HCPCS: 71046

== ENCOUNTER → 2025-08-21 | Outpatient (CLI) | payer BC, SELFPAY ==
--- OUTSIDE RECORDS SUMMARY | 2025-08-21 07:05 | XMS RPT_ITS | CCD ---
Author Organization [facility] Care Team Providers Care Still Cleaner Name Role Phone Dr. Savannah Romeo Primary Care Provider [phone] Ousmane, Dr. Nuñez Attending Provider [phone] Dr. Savannah Romeo Referring Provider [phone] Unavailable Primary Care Provider Dr. Savannah Brown Primary Care Provider [phone] Ousmane, Dr. Nuñez Attending Provider [phone] Dr. Savannah Romeo Referring Provider [phone] Dr. Savannah Romeo Primary Care Provider [phone] Ousmane, Dr. Nuñez Attending Provider [phone] Dr. Savannah Romeo Referring Provider [phone] Dr. Matilde Mo Attending Provider 1([phone]) Dr. Savannah Romeo Primary Care Provider [phone]) Dr. Savannah Romeo Referring Provider [phone] Dr. Matilde Mo Attending Provider 1(3 30) Dr. Savannah Romeo Attending Provider [phone] Dr. Savannah Romeo Primary Care Provider [phone] [phone] Ousmane, Dr. Nuñez Attending Provider [phone] Dr. Savannah Romeo Referring Provider [phone] Dr. Savannah Romeo Primary Care Provider 1(33 0) Dr. Savannah Romeo Attending Provider [phone] Dr. Savannah Romeo Referring Provider [phone])[phone] MD Dylon Culp Attending Provider [phone] Ousmane REDDY, Dr. Nuñez Primary Care Provider Kenn Gloria Attending Provider Kenn Gloria Referring Provider [phone] Ousmane REDDY, Dr. Nuñez Referring Provider [phone] Dylon Culp MD Attending Provider [phone] Dylon Culp MD Referring Provider [phone] Yoan COPYING MACHINE REPAIRER-C, Prema Primary Care Provider Yoan COPYING MACHINE REPAIRER-C, Prema Attending Provider [phone] Yoan COPYING MACHINE REPAIRER-C, Prema Referring Provider [phone] Dylon Culp MD Attending Provider [phone] Martinez Carpenter Attending Provider [phone] Martinez Carpenter Referring Provider [phone] Yoan, Prema Referring Unavailable Yoan, Prema Primary Care Unavailable Martinez Carpenter Attending Unavailable Kenn Gloria Attending Unavailable Oleghe, Efewongbe Primary Care Unavailable Oleghe, Efewongbe Referring Unavailable Oleghe, Efewongbe Primary Care Unavailable Oleghe, Efewongbe Referring Unavailable Dylon Culp Attending Unavailable Yoan, Prema Attending Unavailable Yoan, Prema Primary Care Unavailable Yoan, Prema Attending Unavailable Yoan, Prema Referring Unavailable Yoan, Prema Primary Care Unavailable Yoan, Prema Primary Care Unavailable Martinez Carpenter Attending Unavailable Martinez Carpenter Referring Unavailable Kenn Gloria Attending Unavailable Kenn Gloria Referring Unavailable Oleghe, Efewongbe Primary Care Unavailable Kenn Gloria Attending Unavailable Kenn Gloria Referring Unavailable Oleghe, Efewongbe Primary Care Unavailable Yoan, Prema Primary Care Unavailable Dylon Culp Attending Unavailable Dylon Culp Referring Unavailable Allergies Allergy Classification Reported Allergen(s) Allergy Type Date of Onset Reaction(s) Facility (12 sources) Penicillins; Translations: [Penicillins] Allergy to substance 04-13-2022 [facility] (12 sources) Sulfonamides (Antibiotic); Translations: [Sulfa (Sulfonamide Antibiotics)] Allergy to substance 04-13-2022 [facility] Medications Current Medications Medication Drug Class(es) Dates Sig (Normalized) Sig (Original) Albuterol (18 sources) beta2-Adrenergic Agonist Start: 08-18-2021 take 2 puff(s) by inhalation every four hours as needed Albuterol (Refill) Active 90 MCG INHALATION Q4H August 18, 2021 9:37am 2 puffs every 4 hours as needed Start: 08-18-2021 take 2 puff(s) by in halation every four hours as needed Albuterol (Refill) Active 90 MCG INHALATION Q4H August 18, 2021 10:37am 2 puffs every 4 hours as needed Start: 07-28-2021 End: 08-18-2021 take 2 puff(s) by inhalation every four hours as needed Albuterol (Refill) Discontinued MCG INHALATION July 28, 2021 8:08am August 18, 2021 10:37am 2 puffs every 4 hours as needed Start: 07-28-2021 End: 08-18-2021 take 2 puff(s) by inhalation every four hours as needed Albuterol (Refill) Discontinued MCG INHALATION July 27, 2021 11:00pm August 18, 2021 9:37am 2 puffs every 4 hours as needed Start: 07-28-2021 End: 08-18-2021 take 2 puff(s) by inhalation every four hours as needed Albuterol (Refill) Discontinued MCG INHALATION July 28, 2021 12:00am August 18, 2021 10:37am 2 puffs every 4 hours as needed apremilast 30 mg oral tablet (2 sources) Start: 11-02-2024 take 1 tablet by mouth twice daily Apremilast (Otezla) 30 mg tablet Active 30 mg PO TWICE A DAY November 02, 2024 1:00am azithromycin 250 mg oral tablet (1 source) Macrolide Antimicrobial Start: 03-19-2025 take 2-5 tablets by mouth once daily Azithromycin 250 mg tablet Active 0 PO .COMPLEX March 19, 2025 12:00am take 500 mg today (day 1), then 250 mg for 4 days (days 2-5) PO docosahexaenoic acid 144 mg / eicosapentaenoic acid 216 mg / vitamin e 2 unt oral capsule (11 sources) Start: 07-28-2021 [place]-3 Fatty Acids-Fish Oil (Fish Oil) 360-1,200 mg capsule Active 1 NMA PO DAILY July 28, 2021 12:00am Ipratropium Sherman 21 mcg (0.03 %) spray,non-aerosol (1 source) Start: 03-19-2025 Ipratropium Sherman 21 mcg (0.03 %) spray,non-aerosol Active 2 NMA INTRANASAL 2 to 3 times per day as needed for postnasal drainage March 19, 2025 12:00am administer into each nostril ketoconazole 20 mg/ml medicated shampoo (2 sources) Azole Antifungal Start: 11-02-2024 Ketoconazole 2 % shampoo Active TOPICAL November 02, 2024 1:00am Lactobacillus acidophilus (5 sources) Start: 12-27-2023 Lactobacillus Acidophilus capsule Active 1400 NMA PO DAILY December 27, 2023 1:00am Start: 12-27-2023 Lactobacillus Acidophilus Active 1400 MMU CELLS PO DAILY December 27, 2023 1:00am Start: 12-27-2023 Lactobacillus Acidophilus Active 1400 MMU CELLS PO DAILY December 27, 2023 12:00am Multivitamin preparation (8 sources) Start: 08-27-2022 take 1 tablet by mouth once daily Multivitamin Active 1 TABLET PO DAILY August 26, 2022 11:00pm Start: 08-27-2022 take 1 tablet by nico th once daily Multivitamin Active 1 TABLET PO DAILY August 27, 2022 12:00am Multivitamin tablet (2 sources) Start: 08-27-2022 Multivitamin t ablet Active 1 {tbl} PO DAILY August 27, 2022 12:00am Completed/Discontinued Medications Medication Drug Class(es) Dates Sig (Normalized) Sig (Original) Albuterol (Refill) 90 mcg/actuation aerosol (4 sources) Start: 08-18-2021 End: 02-14-2024 take 2 puff(s) by inhalation every four hours as needed Albuterol (Refill) 90 mcg/actuation aerosol Discontinued 90 ug INHALATION Q4H August 18, 2021 10:37am February 14, 2024 8:59am 2 puffs every 4 hours as needed Start: 07-28-2021 End: 08-18-2021 take 2 puff(s) by inhalation every four hours as needed Albuterol (Refill) 90 mcg/actuation aerosol Discontinued ug INHALATION July 28, 2021 12:00am August 18, 2021 10:37am 2 puffs every 4 hours as needed lisinopril 5 mg oral tablet (20 sources) Angiotensin Converting Enzyme Inhibitor Start: 07-28-2021 End: 06-01-2024 take 1 tablet by mouth twice daily Lisinopril 5 mg tablet Discontinued 5 mg PO TWICE A DAY March 02, 2024 8:35am June 01, 2024 9:24am Start: 07-28-2021 End: 07-28-2021 take 1 tablet by mouth once daily Lisinopril 5 mg tablet Discontinued 5 mg PO DAILY July 28, 2021 12:00am July 28, 2021 8:24am methylPREDNISolone 4 mg oral tablet (4 sources) Corticosteroid Start: 09-28-2024 End: 11-02-2024 take 1 tablet by mouth once Methylprednisolone (Medrol (Anuel)) 4 mg tablets,dose pack Discontinued 0 PO per package directions September 28, 2024 1:00am November 02, 2024 9:05am PO PER PKG DIR Start: 02-14-2024 End: 02-20-2024 take 1 tablet by mouth once Methylprednisolone (Medrol (Anuel)) 4 mg tablets,dose pack Discontinued 4 mg PO per package directions 08 05February 14, 2024 12:00am February 19, 2024 12:00am February 20, 2024 12:05am predniSONE 5 mg oral tablet (4 sources) Start: 01-17-2024 End: 02-14-2024 Prednisone 5 mg tablets,dose pack Discontinued 5 mg PO As Directed January 17, 2024 1:00am February 14, 2024 8:58am see taper instructions Problems Active Problems Problem Classification Problem Date Documented Da te Episodic/Chronic Acute bronchitis (2 sources) Acute bronchitis; Translations: [Acute bronchitis, unspecified] 03-19-2025 Episodic Asthma (19 sources) Asthma; Translations: [Unspecified asthma, uncomplicated] Chronic Disorders of lipid metabolism (11 sources) Hyperlipidemia; Translations: [Hyperlipidemia, unspecified] 07-28-2021 Chronic Essential hypertension (20 sources) Essential hypertension; Translations: [Essential (primary) hypertension] Onset: 01-11-2025 Chronic Genitourinary symptoms and ill-defined conditions (11 sources) Blood in urine; Translations: [Hematuria, unspecified] 08-18-2021 Episodic Gout and other crystal arthropathies (2 sources) Gouty arthritis of left great toe; Translations: [Gout, unspecified] 02-14-2024 Chronic Osteoarthritis (15 sources) Arthritis; Translations: [Unspecified osteoarthritis, unspecified site] Chronic Other connective tissue disease (4 sources) Trigger thumb of left hand; Translations: [Trigger thumb, left thumb] 01-17-2024 Episodic Other connective tissue disease (4 sources) Trigger thumb of right hand; Translations: [Trigger thumb, right thumb] 01-17-2024 Episodic Other connective tissue disease (2 sources) Trigger thumb, left thumb; Translations: [Trigger finger (acquired)] 01-17-2024 Episodic Other connective tissue disease (2 sources) Trigger thumb, right thumb; Translations: [Trigger finger (acquired)] 01-17-2024 Episodic Other connective tissue disease (3 sources) Tear of right rotator cuff; Translations: [Unspecified rotator cuff tear or rupture of right shoulder, not specified as traumatic] 11-02-2024 Episodic Other screening for suspected conditions (not mental disorders or infectious disease) (8 sources) Patient encounter status; Translations: [Encounter for screening for malignant neoplasm of colon] Onset: 02-12-2025 03-08-2023 Episodic Comment on above: Last Cologuard . Other upper respiratory infections (11 sources) Upper respiratory infection; Translations: [Acute upper respiratory infection, unspecified] 11-30-2022 Episodic Unclassified (1 source) M25.511 - Pain in right shoulder,M75.101 - Unspecified rotator cuff tear or rupture of right shoulder, not specified as traumatic Unclassified (1 source) Cough, unspecified; Translations: [Cough, unspecified] Onset: 03-24-2025 Past or Other Problems Problem Classification Problem Date Documented Da te Episodic/Chronic Other connective tissue disease (1 source) Unspecified rotator cuff tear or rupture of right shoulder, not specified as traumatic; Translations: [Unspecified rotator cuff tear or rupture of right shoulder, not specified as traumatic] Onset: 11-02-2024 Episodic Other non-traumatic joint disorders (4 sources) Pain in right shoulder; Translations: [Right shoulder pain] Onset: 11-02-2024 11-02-2024 Episodic Residual codes; unclassified (1 source) Pain, unspecified; Translations: [Pain, unspecified] Onset: 09-28-2024 Episodic Sprains and strains (3 sources) Strain of muscle(s) and tendon(s) of the rotator cuff of right shoulder, initial encounter; Translations: [Strain of right rotator cuff capsule] Onset: 11-24-2024 09-28-2024 Episodic Results Test Name Value Interpretation Reference Range Facility Chest PA and Lateralon 03-19 Chest PA and Lateral [facility] Imaging Services [address], [place] [id number] Chest PA and Lateral MR#: [id number] Acct: [id number] Name: WALLACE BAEZ Rep #: [id number] : 1970 F 54 From: Sudeep Lizarraga MD PCP: SAMEERA Phillips Status: REG CLI Study: Chest PA and Lateral Date of Exam: 03/19/25 Exam# [id number] Ordering Dr: Martinez Acñua PROCEDURE: CHEST PA AND LATERAL (RADCXR), 03/19/2025 REASON FOR EXAM: COUGH TECHNIQUE: PA and lateral views of the chest were obtained. COMPARISON: None FINDINGS: Heart: Unremarkable. Mediastinum: Unremarkable. Lungs/pleura: Slight hypoinflation with vascular crowding. No convincing focal consolidation. No pleural effusion or visible pneumothorax. Bones: Mild spondylosis. Lines and support devices: None. Other: None. RAD/Chest PA and Lateral IMPRESSION: 1. Slight hypoinflation without convincing or visible acute cardiopulmonary findings 2. Additional description as above. Reading Location: [id number] CC: COPYING MACHINE REPAIRERLisa Milton; MARCELL Hinojosa Manufacturing Management Associate: Signed Normal [facility] Urgent Care Visit Reporton 0 03-19-2025 Urgent Care Visit Report [facility] [address], [address] [place] [address] OFFICE VISIT Date of Service: 03/19/25 MR#: [id number] Acct: [id number] Name: WALLACE BAEZ Rep #: [id number] : 1970 Provider: MARCELL Hinojosa Age/Sex: 54/F Location: [facility] Status: Signed Intake Vital Signs 02/14/24 08:58 03/19/25 13:00 Height 5 ft 3 in BP 116/68 Blood Pressure Location Lt brachial Position Sitting Respiration 15 Pulse 74 Pulse Source NIBP Temp 98.7 F Temp Source Oral Pulse Oximetry (%) 98 Oxygen Delivery Method room air Intake Visit Reasons: COUGH Chief Complaint: cough Quality Control Representative Required: No Is patient in pain?: No Allergies Penicillins Allergy (Severe, Verified 03/19/25 13:01) Rash Sulfa (Sulfonamide Antibiotics) Allergy (Severe, Verified 03/19/25 13:01) Rash Is last menstrual period known: No Post menopausal: No Patient : No Have you fallen in the past year?: No Nurse's Note: cough x 3 weeks worse at night. tried benzonatate without relief. hx asthma--feels different. denies LUNA, BA, ST, fever. [facility] Medical History (Updated 03/19/25 @ 13:21 by MARCELL Maher) Right rotator cuff tear Right shoulder pain Strain of right rotator cuff capsule Trigger thumb, left thumb Trigger thumb, right thumb Colon cancer screening URI (upper respiratory infection) Arthritis Hematuria Preventative health care Family History Other Alzheimer's dementia Arthritis Blood clot in vein Breast cancer CVA (cerebral vascular accident) Cancer Diabetes Hypertension Kidney disease Liver disease Myocardial infarction Social History Smoking Status: Never smoker alcohol intake: current alcohol intake frequency: a few times a month substance use type: does not use caffeine: No what type of physical activity do you participate in: none seatbelt use: always do you feel safe at home: Yes additional social history: - Joshua HPI HPI Chief Complaint: cough Details: WALLACE BAEZ, is a 54 F who presents to the office today for complaint of cough, congestion and postnasal drainage for the past 3 weeks. Patient denies fever, chills or sweats. No hemoptysis, shortness of breath or difficulty breathing. No loss of taste or smell. No other associated symptoms or alleviating/aggravating factors. ROS Const Constitutional: No other Exam Const General: cooperative and well developed HENWY Head: normal to inspection and atraumatic Ears: hearing grossly normal bilaterally Nose: nasal discharge clear Face and sinus: normal facial exam Mouth: oral mucosae normal Throat: abnormal tonsil bilaterally hypertrophy 1+ Resp Effort Inspection: normal respiratory effort and no audible wheezes Auscultation: Bilateral: Clear to Auscultation Cardio Palpation: normal PMI Rate: regular rate Rhythm: regular rhythm Neuro General: patient alert and CN's II-XI intact bilaterally Psych Appearance: grossly normal Mental Status: mental status grossly normal Coding Level of Care Code Off vis,est,level 4 Diagnoses Acute bronchitis J20.9 Assessment and Plan Assessment and Plan (1) Acute bronchitis: Status: Acute Orders: Orders Chest PA and Lateral Today R05.9 - Cough, unspecified Medications: New azithromycin take 500 mg today (day 1), then 250 mg for 4 days (days 2-5) PO 6 tabs 0RF ipratropium bromide administer into each nostril 2 sprays intranasal BID-TID PRN 30 mL 0RF postnasal drainage Plan 2 view chest x-ray read and interpreted by myself finding no acute cardiopulmonary disease, awaiting radiology interpretation at time of patient discharge. Azithromycin and Atrovent as prescribed today. Encouraged to get plenty of rest, drink lots of clear liquids, and use Tylenol or Ibuprofen (unless contraindicated) for fever and comfort. Patient also educated on other symptomatic management techniques. To be seen in 7-10 days if no improvement; sooner if worsening of symptoms. Patient advised of potential red flags and when appropriate to report to the ED. Patient verbalized understanding and agreement with all the above. Clinical Quality Measures Falls Risk Screening/Assistive Devices Have you fallen in the past year?: No 03/19/25 1322 Date Martinez Cope Signature: Date (if applicable) CC: Normal [facility] Breast imaging reportOrdered By: Marci Griffin on 02-05-2025 Study report [facility] Imaging Services [address] [place] [address] SCRN MAMM (CAD)W/DEVIN BILAT MR#: [id number] Acct: [id number] Name: WALLACE BAEZ Rep #: [id number] : 1970 F 54 From: Adele Griffin MD PCP: SAMEERA Phillips Status: REG CLI Study:SCRN MAMM (CAD)W/DEVIN BILAT Date of Exa m: 02/05/25 Exam# [id number] Ordering Dr: Ra david Milton EXAM: SCRN MAMM (CAD)W/DEVIN BILAT 02/05/2025 CLINICAL HISTORY: F, Age 54 y/o , SCREENING. Family history of breast cancer in her mother at age50 and paternal grandmother at age 65. TECHNIQUE: Bilateral Diagnostic digital breast tomosynthesis with 2D and 3D images. Computer aided detection. COMPARISON: Prior exam(s) dated 01/24/2024, 10/19/2022, 10/06/2021. FINDINGS: TISSUE DENSITY: The breast tissue is composed of scattered area of fibroglandular density. Bilateral Breast Mammographic Findings: No significant masses, calcifications or other abnormalities are identified. BI/SCRN MAMM (CAD)W/DEVIN BILAT IMPRESSION: There is no mammographic evidence of malignancy. OVERALL FINAL ASSESSMENT: BIRADS 1 NEGATIVE. RECOMMENDATION: Routine annual follow-up in 1 Year A letter with findings and recommendations will be mailed to the patient. Reading Location: [id number] CC: SAMEERA Milton ~ Manufacturing Management Associate: Signed [facility] SCRN MAMM (CAD)W/DEVIN BILATo n 02-05-2025 SCRN MAMM (CAD)W/DEVIN BILAT [facility] Imaging Services [address] [place] [address] SCRN MAMM (CAD)W/DEVIN BILAT MR#: [id number] Acct: [id number] Name: WALLACE BAEZ Rep #: [id number] : 1970 F 54 From: Marci Griffin MD PCP: SAMEERA Phillips Status: REG CLI Study: SCRN MAMM (CAD)W/DEVIN BILAT Date of Exam: 01/17 12/12 Exam# [id number] Ordering Dr: Prema Milton EXAM: SCRN MAMM (CAD)W/DEVIN BILAT 02/05/2025 CLINICAL HISTORY: F, Age 54 y/o , SCREENING. Family history of breast cancer in her mother at age 50 and paternal grandmother at age 65. TECHNIQUE: Bilateral Diagnostic digital breast tomosynthesis with 2D and 3D images. Computer aided detection. COMPARISON: Prior exam(s) dated 01/24/2024, 10/19/2022, 10/06/2021. FINDINGS: TISSUE DENSITY: The breast tissue is composed of scattered area of fibroglandular density. Bilateral Breast Mammographic Findings: No significant masses, calcifications or other abnormalities are identified. BI/SCRN MAMM (CAD)W/DEVIN BILAT IMPRESSION: There is no mammographic evidence of malignancy. OVERALL FINAL ASSESSMENT: BIRADS 1 NEGATIVE. RECOMMENDATION: Routine annual follow-up in 1 Year A letter with findings and recommendations will be mailed to the patient. Reading Location: [id number] CC: SAMEERA Milton Manufacturing Management Associate: Signed Normal [facility] Absolute neutrophil countOrd ered By: Prema Milton on 12-25-2024 Neutrophils (Bld) [#/Vol] 6.0 10*3/uL 2.0-7.7 [facility] Albumin to globulin ratioOrd ered By: Prema Milton on 12-25-2024 Albumin/Globulin [Mass ratio] 1.0 {ratio} 0.9-2.4 [facility] Basophil percentageOrdered B y: Prema Milton on 12-25-2024 Basophils/100 WBC (Bld) 0.7 % 0-1 [facility] Bilirubin, totalOrdered By: Prema Bendergar on 12-25-2024 Bilirubin [Mass/Vol] 0.50 mg/dL 0.20-1.00 [facility] Comment on above: For patients on eltr ombopag therapy, use of Dimension [place] TBIL is not recommended. Blood urea nitrogen (BUN)/cr eatinine ratioOrdered By: Prema Yoan on 12-25-2024 Urea nitrogen/Creatinine [Mass ratio] 15.0 mg/mg 10-20 [facility] CBC W/Diff, Automatedon - Absolute Lymph 1.94 X10 3/uL Normal 0.83-4.51 [facility] Comment on above: Performed By: #### L 100.0100, L500.4050 #### [facility] [address] [place], [address] Absolute Neut 6.0 X10 3/uL Normal 2.0-7.7 [facility] Comment on above: Performed By: #### L 100.0100, L500.4050 #### [facility] [address] [place], [address] Basophils/100 WBC (Bld) 0.7 % Normal 0-1 [facility] Comment on above: Performed By: #### L 100.0100, L500.4050 #### [facility] [address] [place], [address] Eosinophils/100 WBC (Bld) 0.5 % Normal 0-5 [facility] Comment on above: Performed By: #### L 100.0100, L500.4050 #### [facility] [address] [place], [address] Erythrocyte distribution width (RBC) [Ratio] 14.6 % Normal 11.6-14.6 [facility] Comment on above: Performed By: #### L 100.0100, L500.4050 #### [facility] [address] [place], [address] Hematocrit (Bld) [Volume fraction] 42.0 % Normal 37-47 [facility] Comment on above: Performed By: #### L 100.0100, L500.4050 #### [facility] [address] [place], [address] Hemoglobin (Bld) [Mass/Vol] 13.7 g/dL Normal 12.0-15.0 [facility] Comment on above: Performed By: #### L 100.0100, L500.4050 #### [facility] [address] [place], [address] IG% 0.500 Normal 0.0-0.9 [facility] Comment on above: Result Comment: IG% - Immature Granulocytes (promyelocytes, myelocytes and metamyelocytes) > 1% indicates that a LEFT SHIFT is Present. Performed By: #### L 100.0100, L500.4050 #### [facility] [address] [place], [address] Lymphocytes/100 WBC (Bld) 22.9 % Normal 19-41 [facility] Comment on above: Performed By: #### L 100.0100, L500.4050 #### [facility] [address] [place], [address] MCH (RBC) [Entitic mass] 28.7 pg Normal 27.0-32.0 [facility] Comment on above: Performed By: #### L 100.0100, L500.4050 #### [facility] [address] [place], [address] MCHC (RBC) [Mass/Vol] 32.6 g/dL Normal 32-36 [facility] Comment on above: Performed By: #### L 100.0100, L500.4050 #### [facility] [address] [place], [address] MCV (RBC) [Entitic vol] 88.1 fL Normal 81-99 [facility] Comment on above: Performed By: #### L 100.0100, L500.4050 #### [facility] [address] [place], [address] Monocytes/100 WBC (Bld) 5.1 % Normal 0-10 [facility] Comment on above: Performed By: #### L 100.0100, L500.4050 #### [facility] [address] [place], [address] Neutrophils/100 WBC (Bld) 70.3 % High 47-70 [facility] Comment on above: Performed By: #### L 100.0100, L500.4050 #### [facility] [address] [place], [address] Nucleated RBC (Bld) [#/Vol] 0 10*3/uL Normal 0-5 [facility] Comment on above: Performed By: #### L 100.0100, L500.4050 #### [facility] [address] [place], [address] Platelet mean volume (Bld) [Entitic vol] 10.4 fL Normal 6.2-12.0 [facility] Comment on above: Performed By: #### L 100.0100, L500.4050 #### [facility] [address] [place], [address] Platelets (Bld) [#/Vol] 322 10*3/uL Normal 150-450 [facility] Comment on above: Performed By: #### L 100.0100, L500.4050 #### [facility] [address] [place], [address] RBC (Bld) [#/Vol] 4.77 10*6/uL Normal 4.2-5.4 [facility] Comment on above: Performed By: #### L 100.0100, L500.4050 #### [facility] [address] [place], [address] RDW SD 47.2 fl High 35.1-43.9 [facility] Comment on above: Performed By: #### L 100.0100, L500.4050 #### [facility] [address] [place], [address] WBC (Bld) [#/Vol] 8.5 10*3/uL Normal 4.4-11.0 [facility] Comment on above: Performed By: #### L 100.0100, L500.4050 #### [facility] [address] [place], [address] Carbon dioxide measurementOr dered By: Prema Milton on 12-25-2024 CO2 [Moles/Vol] 28.0 mmol/L 21.0-32.0 [facility] Chloride measurementOrdered By: Prema Milton on 12-25-2024 Chloride [Moles/Vol] 103 mmol/L 98-107 [facility] Comprehensive Metabolic Prof ilon 12-25-2024 Albumin [Mass/Vol] 3.7 g/dL Normal 3.2-5.0 [facility] Comment on above: Performed By: #### L 100.0100, L500.4050 #### [facility] [address] [place], [address] Albumin/Globulin [Mass ratio] 1.0 {ratio} Normal 0.9-2.4 [facility] Comment on above: Performed By: #### L 100.0100, L500.4050 #### [facility] [address] [place], [address] ALK P 76 U/L Normal 45-117 [facility] Comment on above: Performed By: #### L 100.0100, L500.4050 #### [facility] [address] [place], [address] ALT [Catalytic activity/Vol] 22 U/L Normal 13-56 [facility] Comment on above: Performed By: #### L 100.0100, L500.4050 #### [facility] [address] [place], [address] AST [Catalytic activity/Vol] 14 U/L Low 15-37 [facility] Comment on above: Performed By: #### L 100.0100, L500.4050 #### [facility] [address] [place], [address] Bilirubin [Mass/Vol] 0.50 mg/dL Normal 0.20-1.00 [facility] Comment on above: Result Comment: For patients on eltrombopag therapy, use of Dimension [place] TBIL is not recommended. Performed By: #### L 100.0100, L500.4050 #### [facility] [address] [place], [address] BUN/CRE 15.0 RATIO Normal 10-20 [facility] Comment on above: Performed By: #### L 100.0100, L500.4050 #### [facility] [address] [place], [address] CA,Total 9.1 mg/dL Normal 8.5-10.1 [facility] Comment on above: Performed By: #### L 100.0100, L500.4050 #### [facility] [address] [place], [address] Chloride [Moles/Vol] 103 mmol/L Normal 98-107 [facility] Comment on above: Performed By: #### L 100.0100, L500.4050 #### [facility] [address] [place], [address] CO2 [Moles/Vol] 28.0 mmol/L Normal 21.0-32.0 [facility] Comment on above: Performed By: #### L 100.0100, L500.4050 #### [facility] [address] [place], [address] Creatinine [Mass/Vol] 1.20 mg/dL High 0.55-1.02 [facility] Comment on above: Result Comment: The validity of the calculated GFR GFRAA in patients over 70 years has not been determined. Clinical correlation is essential. Performed By: #### L 100.0100, L500.4050 #### [facility] [address] [place], [address] EST GFR - AA 60 mL/min Normal >60 [facility] Comment on above: Result Comment: Afri can Taiwanese GFR Calc Performed By: #### L 100.0100, L500.4050 #### [facility] [address] [place], [address] GAP 7 Normal 5-15 [facility] Comment on above: Performed By: #### L 100.0100, L500.4050 #### [facility] [address] [place], [address] GFR/1.73 sq M.predicted among non-blacks MDRD (S/P/Bld) [Vol rate/Area] 50 mL/min/{1.73_m2} Low >60 [facility] Comment on above: Result Comment: Non- GFR Calc Performed By: #### L 100.0100, L500.4050 #### [facility] [address] [place], [address] Globulin (S) [Mass/Vol] 3.6 g/dL Normal 2.2-4.2 [facility] Comment on above: Performed By: #### L 100.0100, L500.4050 #### [facility] [address] [place], [address] Glucose [Mass/Vol] 113 mg/dL High 74-106 [facility] Comment on above: Result Comment: Fast ing Glucose result from 100 to 125 mg/dL suggests IMPAIRED HOMEOSTASIS per A.D.A. criteria. Performed By: #### L 100.0100, L500.4050 #### [facility] [address] [place], [address] Potassium [Moles/Vol] 4.3 mmol/L Normal 3.5-5.1 [facility] Comment on above: Performed By: #### L 100.0100, L500.4050 #### [facility] [address] [place], [address] Sodium [Moles/Vol] 138 mmol/L Normal 136-145 [facility] Comment on above: Performed By: #### L 100.0100, L500.4050 #### [facility] [address] [place], [address] T PROT 7.3 g/dL Normal 6.4-8.2 [facility] Comment on above: Performed By: #### L 100.0100, L500.4050 #### [facility] [address] [place], [address] Urea nitrogen [Mass/Vol] 18 mg/dL Normal 7-18 [facility] Comment on above: Performed By: #### L 100.0100, L500.4050 #### [facility] [address] [place], [address] Eosinophil percentageOrdered By: Prema Milton on 12-25-2024 Eosinophils/100 WBC (Bld) 0.5 % 0-5 [facility] Erythrocyte distribution wid th ratioOrdered By: Prema Milton on 12-25-2024 Erythrocyte distribution width (RBC) [Ratio] 14.6 % 11.6-14.6 [facility] Erythrocyte distribution wid th standard deviationOrdered By: Prema Milton on 12-25-2024 Erythrocyte distribution width (RBC) [Entitic vol] 47.2 fL High 35.1-43.9 [facility] Estimated glomerular filtrat ion rate (GFR) AmericanOrdered By: Prema Milton on 12-25-2024 Estimated GFR (MDRD) Amer 60 mL/min >60 [facility] Comment on above: GFR Calc Glomerular filtration rate ( GFR) estimationOrdered By: Prema Milton on 12-25-2024 Estimated GFR (MDRD) Non-Af Amer 50 mL/min Low >60 [facility] Comment on above: Non- GFR Calc Glucose measurementOrdered B y: Prema Milton on 12-25-2024 Glucose [Mass/Vol] 113 mg/dL High 74-106 [facility] Comment on above: Fasting Glucose resu lt from 100 to 125 mg/dL suggests IMPAIRED HOMEOSTASIS per A.D.A. criteria. Hematocrit Auto (Bld) [Volum e fraction]Ordered By: Prema Milton on 12-25-2024 Hematocrit (Bld) [Volume fraction] 42.0 % 37-47 [facility] Hemoglobin measurementOrdere d By: Prema Milton on 12-25-2024 Hemoglobin (Bld) [Mass/Vol] 13.7 g/dL 12.0-15.0 [facility] Immature granulocytes/100 WB C Auto (Bld)Ordered By: Prema Milton on 12-25-2024 Immature granulocytes/100 WBC (Bld) 0.500 % 0.0-0.9 [facility] Comment on above: IG% - Immature Granu locytes (promyelocytes, myelocytes and metamyelocytes) > 1% indicates that a LEFT SHIFT is Present. Laboratory - Chemistry and C hemistry - challengeOrdered By: Prema Milton on 12-25-2024 AST [Catalytic activity/Vol] 14 U/L Low 15-37 [facility] Lymphocytes Auto (Unsp spec) [#/Vol]Ordered By: Prema Milton on 12-25-2024 Lymphocytes (Bld) [#/Vol] 1.94 10*3/uL 0.83-4.51 [facility] Lymphocytes/100 WBC Auto (Un sp spec)Ordered By: Prema Milton on 12-25-2024 Lymphocytes/100 WBC (Bld) 22.9 % 19-41 [facility] MCV (mean corpuscular volume ) determinationOrdered By: Prema Milton on 12-25-2024 MCV (RBC) [Entitic vol] 88.1 fL 81-99 [facility] Mean corpuscular hemoglobin (MCH) determinationOrdered By: Prema Milton on 12-25-2024 MCH (RBC) [Entitic mass] 28.7 pg 27.0-32.0 [facility] Mean corpuscular hemoglobin concentration (MCHC) determinationOrdered By: Prema Milton on 12-25-2024 MCHC (RBC) [Mass/Vol] 32.6 g/dL 32-36 [facility] Mean platelet volume determi nationOrdered By: Prema Milton on 12-25-2024 Platelet mean volume (Bld) [Entitic vol] 10.4 fL 6.2-12.0 [facility] Monocyte percentageOrdered B y: Prema Milton on 12-25-2024 Monocytes/100 WBC (Bld) 5.1 % 0-10 [facility] Neutrophil percentageOrdered By: Prema Milton on 12-25-2024 Neutrophils/100 WBC (Bld) 70.3 % High 47-70 [facility] Nucleated red blood cell per centageOrdered By: Prema Milton on 12-25-2024 Nucleated RBC/100 WBC (Bld) [Ratio] 0 % 0-5 [facility] Platelet countOrdered By: Ra david Milton on 12-25-2024 Platelets (Bld) [#/Vol] 322 10*3/uL 150-450 [facility] Potassium measurementOrdered By: Prema Milton on 12-25-2024 Potassium [Moles/Vol] 4.3 mmol/L 3.5-5.1 [facility] RBC Auto (Bld) [#/Vol]Ordere d By: Prema Milton on 12-25-2024 RBC (Bld) [#/Vol] 4.77 10*6/uL 4.2-5.4 [facility] Serum anion gap measurementO rdered By: Prema Milton on 12-25-2024 Anion gap [Moles/Vol] 7 mmol/L 5-15 [facility] Serum globulin measurementOr dered By: Prema Milton on 12-25-2024 Globulin (S) [Mass/Vol] 3.6 g/dL 2.2-4.2 [facility] Serum or plasma alanine varma otransferase (ALT) measurementOrdered By: Prema Milton on 12-25-2024 ALT [Catalytic activity/Vol] 22 U/L 13-56 [facility] Serum or plasma albumin carmela urement (mass/volume)Ordered By: Prema Milton on 12-25-2024 Albumin [Mass/Vol] 3.7 g/dL 3.2-5.0 [facility] Serum or plasma alkaline hussain sphatase measurementOrdered By: Prema Milton on 12-25-2024 ALP [Catalytic activity/Vol] 76 U/L 45-117 [facility] Serum or plasma calcium carmela urement (mass/volume)Ordered By: Prema Milton on 12-25-2024 Calcium [Mass/Vol] 9.1 mg/dL 8.5-10.1 [facility] Serum or plasma creatinine m easurement (mass/volume)Ordered By: Prema Milton on 12-25-2024 Creatinine [Mass/Vol] 1.20 mg/dL High 0.55-1.02 [facility] Comment on above: The validity of the calculated GFR & GFRAA in patients over 70 years has not been determined. Clinical correlation is essential. Serum or plasma urea nitroge n measurement (mass/volume)Ordered By: Prema Milton on 12-25-2024 Urea nitrogen [Mass/Vol] 18 mg/dL 7-18 [facility] Sodium levelOrdered By: Veronika Milton on 12-25-2024 Sodium [Moles/Vol] 138 mmol/L 136-145 [facility] Total proteinOrdered By: Rahul Milton on 12-25-2024 Protein [Mass/Vol] 7.3 g/dL 6.4-8.2 [facility] White blood cell (WBC) count Ordered By: Prema Milton on 12-25-2024 WBC (Bld) [#/Vol] 8.5 10*3/uL 4.4-11.0 [facility] PT D/C Summary (1)on 025 PT D/C Summary (1) [facility] [address] [place] [address] / REHABILITATION SERVICES DISCHARGE SUMMARY MR#: [id number] Acct: [id number] Name: WALLACE BAEZ Rep #: [id number] : 1970 54 From: Christin Mares MPT Referring Dr.: Dr. Dylon Culp MD Status: R EG RCR Insurance: [employer] INSURANCE Discharge Summary D/C summary: It has been my pleasure to treat WALLACE BAEZ referred by Dr. Dylon Culp MD, with the diagnosis of R shoulder pain/R RC tear for a total of 8 visit(s). Discharge Date: 12/07/24 Please see the following information for a summary of their discharge status. Subjective Subjective: Once in while when washing her hair or cutting her food she will get the twinges. She moved some things out of a house this weekend and she was not in any pain. She feels that she can do some PT at home. Pain R shoulder pain: Pain Intensity (Out of 10): 3 Overall Improvement % Improvement: 60 Objective Objective/Function: AROM R shoulder flex 146 and L 140 R shoulder ABD 170 and L 159 R shoulder IR T6 and L T8 R shoulder ER 45 and L 54 MMT R shoulder MMT: 9.1 and L 7 L shoulder ABD 8.5 and L 6.5 R shoulder ER 7.8 and L 8 R shoulder IR 8.5 and L 6.5 Goals Goal 1:: I HEP Goal Progress: Goal Met Goal 2:: Increase R shoulder AROM (R shoulder flex 106 and L 140 R shoulder ABD 145 and L 159 R shoulder IR T12 and L T8 R shoulder ER 45 and L 54). Goal Progress: Goal Met Goal 3:: Increase R shoulder strength (at the time of the eval: Rshoulder MMT: 6 and L 7 L shoulder ABD 6 and L 6.5 R shoulder ER 5.7 and L 8 R shoulder IR 6.4 and L 6.5) Goal Progress: Goal Met Goal 4:: Be able to use R hand to do hair without pain Goal Progress: Progressing Plan Plan: DC PT to HEP per pt request. She will contact Dr if doing PT at home is not working. Issued HEP with pictures and bands D/C Information Discharge Comments: DC PT to HEP d/c sentence: If there are questions or concerns regarding this patient's physical therapy, please feel free to call me at [phone]. Thank you for the referral of this patient. Sincerely, MAYRA Workman Balance/Gait/Functional tests Balance/Special Test Scores Quick DASH Score: 43.1800 Improvement % Improvement: 60 12/07/24 1605 CC: SAMEERA Milton; Dr. Dylon Culp MD Signed [facility] Inital Evaluation (1) - PTon 11-06-2024 Inital Evaluation (1) - PT [facility] [address] [place] [address] / REHABILITATION SERVICES INITIAL EVALUATION MR#: [id number] Acct: [id number] Name: WALLACE BAEZ Rep #: [id number] : 1970 54 From: Christin NUNEZ Referring Dr.: Dr. Dylon Culp MD Status: R EG RCR Insurance: [employer] S[employer] PAY INSURANCE Patient's Visit Information Visit Information Visit Information: WALLACE BAEZ is a 54 year old F referred to Physical Therapy by Dr. Dylon Culp MD with a diagnosis of R shoulder pain/R RC tear. Date of Evaluation: 11/06/24 Physical Therapist: MAYRA Workman Visit Plan Frequency: 2x /Week Duration: 2 Months Plan: +++NEED QUICK DASH+++ 2X/ week for 8 weeks for R shoulder PROM, AAROM, AROM, scapular and RC strength, postural exercises/education with HEP HEP: supine wand flexion, standing wand IR, and green band mid rows Subjective Subjective: She did something to her R shoulder and it hurt for a month and then she was tearing a piece of paper and then it really started to hurt. It hurts when she lifts her R arm up to drink coffee or wash hair. It is sharp pain. Lately it is a dull ache most of the time and hurts more with movements. She got a cortisone shot and 6 weeks of therapy. There was an MRI and x-ray before seeing him. There is a small tear (8mm) and arthritis and bursitis. The cortisone shot helped 20- 30% not as sharp of a pain but is still there. She just got the shot this past Saturday. She can not sleep on her R shoulder. She sleeps ok if she sleeps on her L shoulder. 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 did not do empty can as imaging shows a small tear Goals Goal 1:: I HEP Goal Time Frame: 6-8 Weeks Goal 2:: Increase R shoulder AROM (R shoulder flex 106 and L 140 R shoulder ABD 145 and L 159 R shoulder IR T12 and L T8 R shoulder ER 45 and L 54). Goal Time Frame: 6-8 Weeks Goal 3:: Increase R shoulder strength (at the time of the eval: Rshoulder MMT: 6 and L 7 L shoulder ABD 6 and L 6.5 R shoulder ER 5.7 and L 8 R shoulder IR 6.4 and L 6.5) Goal Time Frame: 6-8 Weeks Goal 4:: Be able to use R hand to do hair without pain Goal Time Frame: 6-8 Weeks Rehabilitation Potential Rehabilitation Potential: Good Anticipated Interventions Patient/Client Instruction: Educate patient on: Condition and Plan of Care For the Purpose of:: To decrease pain, To decrease swelling/inflammation, To increase ROM, To improve nutrient delivery to tissue, To improve muscle performance and motor function, To improve ability to perform ADL's, To increase tolerance to activity/condition/position, To improve performance and independence with ADL's, To decrease level of supervision to perform tasks, To improve ability of physical actions for home/community/work/leisure, To improve health of tissue, To decrease soft tissue restriction and To increase flexibility/ROM Therapeutic Exercise to Include: Strength training, Body mechanics, Postural training, Flexibilty training, Passive ROM, Active ROM and Scapular Strength/Stabilization For the Purpose of:: To decrease pain, To increase ROM, To improve nutrient delivery to tissue, To improve muscle performance and motor function, To improve ability to perform ADL's, To improve performance and independence with ADL's, To decrease level of supervision to perform tasks, To improve health of tissue, To decrease soft tissue restriction and To increase flexibility/ROM Manual Therapy Techniques to Include: Passive ROM For the Purpose of:: To decrease swelling/inflammation, To increase ROM and To improve nutrient delivery to tissue IF ES: Yes Cryotherapy (ice pack, ice massage): Yes Thermo therapy (hot pack): Yes Ultrasound (thermal/non thermal): Yes For the Purpose of:: To decrease pain, To decrease swelling/inflammation, To increase ROM, To improve nutrient delivery to tissue and To improve muscle performance and motor function Text: Thank you for the opportunity to evaluate your patient. For Medicare and Medicare HMO plans, please review the plan of care and approve it. It will need to be FAXED BACK to us at [phone] for Medicare purposes. For Medicare only, by signing this I certify the plan of care. Please let me know if there are questions or concerns regarding this plan of care (more content not included)... [facility] Orthopedic Visit Reporton Orthopedic Visit Report [facility] [address] [place] [id number] OFFICE VISIT Date of Service: 11/02/24 MR#: [id number] Acct: [id number] Name: WALLACE BAEZ Rep #: [id number] : 1970 Provider: Dr. Dylon tee MD Age/Sex: 54/F Location: [facility] [place] Status: Signed with Addenda ADDENDUM by Dori Henriquez on 11/02/24 at 0844 Office Procedure Documentation entered by Dori Henriquez 11/02/24 08:44: Ortho Injections Injections Yes Subacromial Injection Right Is this a patient provided medication?: No Details: Obtained consent for injection. Under sterile conditions, injected the patients right shoulder with 2cc Kenalog 4cc Bupivacaine. The patient tolerated the injection well without any noted complication. Patient should call our office if redness develops, pain worsens or if they have any concerns. Office Meds Kenalog 40 mg/mL suspension for injection Performing Provider: Dylon Culp MD Performing Location: [facility] Administered by: Dylon Culp MD on 11/02/24 08:43 Dose Route Admin Location Dispensed Lot Number Expiration Date NDC Man ufacturer 80 mg intra-articular right subacromial 2 mL [id number] 03/18/26 3623-3409-41 [employer] Date cc: * Signed Intake Vital Signs 02/14/24 08:58 Height 5 ft 3 in Intake Visit Reasons: RIGHT SHOULDER Accompanied by: Self Is patient in pain?: Yes Pain scale (1-10): 3 Allergies Penicillins Allergy (Severe, Verified 11/02/24 08:04) Rash Sulfa (Sulfonamide Antibiotics) Allergy (Severe, Verified 11/02/24 08:04) Rash Medications ???Medication ???Instructions ???Recorded ???Confirmed ???Type omega-3 fatty acids-fish oil 360 1 cap PO DAILY 07/28/21 02/14/24 History mg-1,200 mg capsule (Fish Oil) multivitamin 1 tab PO DAILY 08/27/22 02/14/24 History Lactobacillus acidophilus 1,400 mmu cells PO DAILY 12/27/23 02/14/24 History lisinopril 5 mg tablet 5 mg PO BID #30 tabs 06/01/24 Rx apremilast 30 mg tablet (Otezla) 30 mg PO BID 11/02/24 11/02/24 History ketoconazole 2 % shampoo topical 11/02/24 11/02/24 History PFSH Medical History (Updated 11/02/24 @ 08:06 by Dylon Culp MD) Right rotator cuff tear Right shoulder pain Strain of right rotator cuff capsule Trigger thumb, left thumb Trigger thumb, right thumb Colon cancer screening URI (upper respiratory infection) Arthritis Hematuria Preventative health care Family History Other Alzheimer's dementia Arthritis Blood clot in vein Breast cancer CVA (cerebral vascular accident) Cancer Diabetes Hypertension Kidney disease Liver disease Myocardial infarction Social History Smoking Status: Never smoker alcohol intake: current alcohol intake frequency: a few times a month substance use type: does not use caffeine: No what type of physical activity do you participate in: none seatbelt use: always do you feel safe at home: Yes additional social history: - Joshua HPI RIGHT SHOULDER Details: This documentation accurately reflects the service provided and the decisions made by me, Dr. Dylon Culp MD 11/02/24 0800. Part of today???s visit was documented by [ ], acting as scribe. WALLACE BAEZ is a 54 year old F here today for R shoulder pain. No trauma worse over the last few weeks has not had this pain before worse at night pain is anywhere from a 3 to an 8 out of 10 most of the pain posteriorly. Has tried Tylenol and oral anti-inflammatories as well as prednisone is not getting any better. Worse with lifting. 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 Addio-lnba-[id number]. per urgent care 54 F who presents to the office today for R ant. shoulder pain happening yesterday after tearing a piece of paper. RHD. Pain aggravated to touch and ROM, alleviated w/ rest to side. Motril and tylenol taken w/o assist. No other associated symptoms and no other +/- factors. Ortho Exam General General: Yes no acute distress Neurologic: Yes alert and Yes oriented x3 Psychologic: Yes reasonable and appropriate Right Shoulder Skin/Wound: Yes CDI, No ecchymosis, No erythema and No swelling Testing: Positive Hawkin's, Neer's, AROM-Forward Elevation 0-180, AROM-External Rotation at side 0- 60, empty can and belly press normal; Negative Speed's, TTP Biceps, TTP AC Joint, Drop Arm, cross arm or scapular winging SHOULDER: normal motor and sens to ax nerve, and MRU and AIN/PIN Forward elevation and external rotation strength 4+/5 Supplemental Info [facility] [address] [place], [place] [address] Shoulder min 2 Views (more content not included)... [facility] Upper Ext Joint Only(Routine )on 10-24-2024 Upper Ext Joint Only(Routine) [facility] [address] [place] [address] Upper Ext Joint Only(Routine) MR#: [id number] Acct: [id number] Name: WALLACE BAEZ Rep #: [id number] : 1970 F 54 From: Nazario Hughes MD PCP: Dr. Savannah Romeo MD Status: REG CLI Study: Upper Ext Joint Only(Routine) Date of Exam: 1 12/25/23 Exam# [id number] Ordering Dr: Kenn Lobo :[id number] STUDY: MRI RIGHT SHOULDER REASON FOR EXAM: Female, 54 years old. Right shoulder strain. Painful to lift weight x 1 month. TECHNIQUE: Standardized fat and water weighted pulse sequences were obtained in all 3 orthogonal planes. COMPARISON: Right shoulder radiographs dated 09/28/2024. FINDINGS: There is a moderate grade partial thickness articular surface tear of the distal supraspinatus tendon, overall measuring 8 mm in length (coronal T2 series 7 images 10-12) and 9 mm in width (axial T2 series 4 image 7). Normal infraspinatus tendon. Normal subscapularis tendon. Normal teres minor tendon. Normal supraspinatus muscle. Normal infraspinatus muscle. Normal subscapularis muscle. Normal teres minor muscle. Normal glenohumeral articulation. Normal humeral head and visualized proximal humerus. Normal biceps labral complex. Normal intracapsular long biceps tendon. Normal labrum. Normal capsulo-ligamentous complex. Normal rotator interval. There is hypertrophic acromioclavicular arthrosis, with inferior osteophyte formation, with mild effacement of the supraspinatus myotendinous junction (coronal T2 series 7 images 7-8). There is a Type II morphology (curved), with a neutral orientation. There is a small amount of subacromial-subdeltoid bursal fluid. Normal visualized coracohumeral and coracoacromial ligaments. Normal quadrilateral space. Normal axillary space. Normal deltoid muscle. Normal trapezius muscle. MRI/Upper Ext Joint Only(Routine) IMPRESSION: 8 x 9 mm moderate grade partial thickness articular surface tear of the distal supraspinatus tendon. Hypertrophic acromioclavicular arthrosis, with inferior osteophyte formation, with mild effacement of the supraspinatus myotendinous junction. Mild subacromial-subdeltoid bursitis. Electronically Signed: Nazario Hughes MD at 15:30 EST Reading Location ID and State: [address] [place] [address] , Service support , CC: Dr. Savannah Romeo MD; MARCE[employer] Associate: Signed [facility] Shoulder min 2 Viewson 09-28 Shoulder min 2 Views [facility] [address], [place] [id number] Shoulder min 2 Views MR#: [id number] Acct: [id number] Name: WALLACE BAEZ Rep #: [id number] : 1970 F 54 From: Michael Washington MD PCP: Dr. Savannah Romeo MD Status: REG CLI Study: Shoulder min 2 Views Date of Exam: 09/28/24 Exam# [id number] Ordering Dr: Kenn Lobo :[id number] INDICATION: Shoulder pain EXAMINATION/TECHNIQUE: X-RAY - RIGHT XR Shoulder Min 2 Views 4 VIEWS COMPARISON: None. FINDINGS: SOFT TISSUES: No soft tissue swelling or gas. No radiopaque foreign body. BONES/JOINTS: No acute fracture. Joint spaces anatomically maintained. No sclerotic or destructive changes observed. RAD/Shoulder min 2 Views IMPRESSION: Unremarkable study. Electronically Signed: Michael Washington MD at 17:36 EST , CC: Dr. Savannah Romeo MD; MARCELL Mckeon Manufacturing Management Associate: Signed Normal [facility] Visit Reporton 1 11-28-2023 Urgent Care Visit Report [facility] [address], [address] [place] [address] OFFICE VISIT Date of Service: 09/28/24 MR#: [id number] Acct: [id number] Name: WALLACE BAEZ Rep #: [id number] : 1970 Provider: MARCELL Mckeon Age/Sex: 54/F Location: [facility] Status: Signed Intake Vital Signs 02/14/24 08:58 09/28/24 16:02 Height 5 ft 3 in Weight: 190 lb 8 oz BMI 33.7 BP 118/78 128/86 H Blood Pressure Location Lt brachial Lt brachial Position Sitting Sitting Respiration 16 12 Pulse 77 76 Pulse Source NIBP Monitor Temp 98.2 F 98.2 F Temp Source Temporal Oral Pulse Oximetry (%) 98 98 Oxygen Delivery Method room air room air Intake Visit Reasons: PAIN IN R SHOULDER Allergies Penicillins Allergy (Severe, Verified 09/28/24 16:03) Rash Sulfa (Sulfonamide Antibiotics) Allergy (Severe, Verified 09/28/24 16:03) Rash [facility] Medical History (Updated 09/28/24 @ 16:30 by Kenn FAITH, PA) Strain of right rotator cuff capsule Trigger thumb, left thumb Trigger thumb, right thumb Colon cancer screening URI (upper respiratory infection) Arthritis Hematuria Preventative health care Family History Other Alzheimer's dementia Arthritis Blood clot in vein Breast cancer CVA (cerebral vascular accident) Cancer Diabetes Hypertension Kidney disease Liver disease Myocardial infarction Social History Smoking Status: Never smoker alcohol intake: current alcohol intake frequency: a few times a month substance use type: does not use caffeine: No what type of physical activity do you participate in: none seatbelt use: always do you feel safe at home: Yes additional social history: - Joshua HPI HPI Details: WALLACE BAEZ, is a 54 F who presents to the office today for R ant. shoulder pain happening yesterday after tearing a piece of paper. RHD. Pain aggravated to touch and ROM, alleviated w/ rest to side. Motril and tylenol taken w/o assist. No other associated symptoms and no other +/- factors. PMH NC ROS Const Constitutional: No other Exam Const General: cooperative, healthy appearing and no acute distress Orientation: alert and awake Chest Chest palpation inspection: normal inspection of the chest Resp Effort Inspection: normal respiratory effort and able to speak in complete sentences Cardio Rate: regular rate Pulses: radial pulses present GI Inspection: normal to inspection Palpation: soft and no hepatosplenomegaly Skin General: no rashes or lesions noted Neuro General: patient alert, patient awake, patient oriented x3 and gait normal Cognition: normal cognition Speech: speech normal Gait: normal gait Motor: muscle tone normal throughout Sensory Exam: no sensory deficits noted Extrem General: normal to inspection, capillary refill normal and normal exam except as noted (Right shoulder: Positive empty can and Apley and anterior palpable tenderne) Psych Appearance: grossly normal Mental Status: mental status grossly normal Mood: congruent mood Affect: normal affect Speech and Movement: speech and movement normal Attitude: cooperative Thought Process: normal Thought Content: normal Judgment: judgment good Coding Level of Care Code Off vis,est,level 4 Diagnoses Strain of right rotator cuff capsule S46.011A Assessment and Plan Assessment and Plan (1) Strain of right rotator cuff capsule: Status: Acute Plan: Right shoulder radiographs reveal no acute osseous pathology per my review, with radiologist interpretation pending at time patient discharge. Supportive measures including rest, home range of motion exercises, and Medrol Dosepak as prescribed today. MRI no contrast ordered today as well as orthopedic referral placed today (which she is to schedule after MRI date has been set). Follow-up with the [facility] on an as-needed basis only. Patient states acknowledging understanding all the above. This note was generated with Visualant dictation software. It may contain incorrect words, spelling, and punctuation that were not noted in checking the note before signing. Orders: Orders Shoulder min 2 Views Today R52 - Pain, unspecified Upper Ext/No Jt/ wo Today S46.011A - Strain of muscle(s) and tendon(s) of the rotator cuff of right shoulder, initial encounter Referrals Orthopedics S46.011A - Strain of muscle(s) and tendon(s) of the rotator cuff of right shoulder, initial encounter Medications: New methylprednisolone (Medrol (Anuel)) PO PER PKG DIR 21 tabs 0RF 09/28/24 5939 Date Kenn FAITH Cosigner Signature: Date _ (more content not included)... Normal [facility] Basophil percentageOrdered B y: Savannah Romeo on 02-07-2024 Chloride [Moles/Vol] 104 mmol/L 98-107 [facility] Glucose [Mass/Vol] 88 mg/dL 74-106 [facility] Potassium [Moles/Vol] 3.8 mmol/L 3.5-5.1 [facility] Sodium [Moles/Vol] 136 mmol/L 136-145 [facility] Laboratory - Chemistry and C hemistry - challengeOrdered By: Savannah Romeo on 02-07-2024 CO2 [Moles/Vol] 26.0 mmol/L 21.0-32.0 [facility] Urea nitrogen/Creatinine [Mass ratio] 23.6 mg/mg 10-20 [facility] No Panel InformationOrdered By: Savannah Romeo on 02-07-2024 Estimated GFR (MDRD) Amer 70 mL/min >60 [facility] Comment on above: GFR Calc Estimated GFR (MDRD) Non-Af Amer 58 mL/min >60 [facility] Comment on above: Non- GFR Calc Serum or plasma calcium cramela urement (mass/volume)Ordered By: Savannah Romeo on 02-07-2024 Calcium [Mass/Vol] 9.1 mg/dL 8.5-10.1 [facility] Serum or plasma creatinine m easurement (mass/volume)Ordered By: Savannah Romeo on 02-07-2024 Creatinine [Mass/Vol] 1.06 mg/dL 0.55-1.02 [facility] Comment on above: The validity of the calculated GFR & GFRAA in patients over 70 years has not been determined. Clinical correlation is essential. Serum or plasma urea nitroge n measurement (mass/volume)Ordered By: Savannah Romeo on 02-07-2024 Urea nitrogen [Mass/Vol] 25 mg/dL 7-18 [facility] Thin prep Papanicolaou smear with manual screeningOrdered By: [facility] Romeo on 02-07-2024 Thin prep Papanicolaou smear with manual screening 6 5-15 [facility] Absolute lymphocyte countOrd ered By: Savannah Romeo on 12-27-2023 Lymphocytes Auto (Unsp spec) [#/Vol] 1.89 10*3/uL 0.83-4.51 [facility] Automated lymphocyte count a s percentage of total leukocytesOrdered By: Savannah Romeo on 12-27-2023 Lymphocytes/100 WBC Auto (Unsp spec) 25.4 % 19-41 [facility] Basophil percentageOrdered B y: Savannah Romeo on 12-27-2023 Basophil percentage < 10.0 IU/mL <15 [facility] Basophils/100 WBC (Bld) 0.5 % 0-1 [facility] Bilirubin [Mass/Vol] 0.50 mg/dL 0.20-1.00 [facility] Comment on above: For patients on eltr ombopag therapy, use of Dimension [place] TBIL is not recommended. Chloride [Moles/Vol] 106 mmol/L 98-107 [facility] Cholesterol [Mass/Vol] 213 mg/dL <200 [facility] Comment on above: <200 mg/dL Desirable 200-240 mg/dL Borderline >240 mg/dL High Risk Eosinophils/100 WBC (Bld) 0.9 % 0-5 [facility] Glucose [Mass/Vol] 100 mg/dL 74-106 [facility] Comment on above: Fasting Glucose resu lt from 100 to 125 mg/dL suggests IMPAIRED HOMEOSTASIS per A.D.A. criteria. Hemoglobin (Bld) [Mass/Vol] 13.5 g/dL 12.0-15.0 [facility] Monocytes/100 WBC (Bld) 5.0 % 0-10 [facility] Neutrophils (Bld) [#/Vol] 5.0 10*3/uL 2.0-7.7 [facility] Neutrophils/100 WBC (Bld) 67.8 % 47-70 [facility] Potassium [Moles/Vol] 4.0 mmol/L 3.5-5.1 [facility] Protein [Mass/Vol] 7.6 g/dL 6.4-8.2 [facility] Sodium [Moles/Vol] 139 mmol/L 136-145 [facility] Triglyceride [Mass/Vol] 274 mg/dL <199 [facility] Comment on above: The drugs N-Acetylcy steine and Metamizole may falsely depress this assay.Serum Triglycerides Reference Interval Normal <150 mg/dL Borderline high 150 - 199 mg/dL High 200 - 499 mg/dL Very High > or = 500 mg/dL WBC (Bld) [#/Vol] 7.4 10*3/uL 4.4-11.0 [facility] Determination of erythrocyte mean corpuscular volume (MCV)Ordered By: Savannah Romeo on 12-27-2023 MCV (RBC) [Entitic vol] 86.7 fL 81-99 [facility] Erythrocyte distribution wid th ratioOrdered By: Savannah Romeo on 12-27-2023 Erythrocyte distribution width (RBC) [Ratio] 15.1 % 11.6-14.6 [facility] Erythrocyte distribution wid th standard deviationOrdered By: Savannah Romeo on 12-27-2023 Erythrocyte distribution width (RBC) [Entitic vol] 48.3 fL 35.1-43.9 [facility] Erythrocyte sedimentation ra teOrdered By: chloe Romeo on 12-27-2023 ESR (Bld) [Velocity] 16 mm/h 0-30 [facility] Hematocrit Auto (Bld) [Volum e fraction]Ordered By: [facility] Romeo on 12-27-2023 Hematocrit (Bld) [Volume fraction] 43.1 % 37-47 [facility] Immature granulocytes/100 WB C Auto (Bld)Ordered By: [facility] Froybobbi on 12-27-2023 Immature granulocytes/100 WBC (Bld) 0.400 % 0.0-0.9 [facility] Comment on above: IG% - Immature Granu locytes (promyelocytes, myelocytes and metamyelocytes) > 1% indicates that a LEFT SHIFT is Present. Laboratory - Chemistry and C hemistry - challengeOrdered By: joelnew carlisleanson Mcduffiebobbi on 12-27-2023 Albumin/Globulin [Mass ratio] 1.1 {ratio} 0.9-2.4 [facility] ALP [Catalytic activity/Vol] 79 U/L 45-117 [facility] ALT [Catalytic activity/Vol] 28 U/L 13-56 [facility] Cholesterol in HDL [Mass/Vol] 44 mg/dL >40 [facility] Comment on above: The drugs N-Acetylcy steine and Metamizole may falsely depress this assay. Reference Range HDL <40 mg/dL Low HDL Cholesterol HDL >or= 60 mg/dL High HDL Cholesterol Cholesterol in LDL [Mass/Vol] 114 mg/dL 0-130 [facility] CO2 [Moles/Vol] 28.0 mmol/L 21.0-32.0 [facility] Globulin (S) [Mass/Vol] 3.7 g/dL 2.2-4.2 [facility] Urea nitrogen/Creatinine [Mass ratio] 19.1 mg/mg 10-20 [facility] Laboratory - Hematology and Cell countsOrdered By: [facility] Romeo on 12-27-2023 MCH (RBC) [Entitic mass] 27.2 pg 27.0-32.0 [facility] MCHC (RBC) [Mass/Vol] 31.3 g/dL 32-36 [facility] Nucleated RBC/100 WBC (Bld) [Ratio] 0 % 0-5 [facility] Platelet mean volume (Bld) [Entitic vol] 10.8 fL 6.2-12.0 [facility] Platelets (Bld) [#/Vol] 269 10*3/uL 150-450 [facility] No Panel InformationOrdered By: Savannah Romeo on 12-27-2023 Estimated GFR (MDRD) Amer 52 mL/min >60 [facility] Comment on above: GFR Calc Estimated GFR (MDRD) Non-Af Amer 43 mL/min >60 [facility] Comment on above: Non- GFR Calc VLDL Cholesterol 55 mg/dL 5-40 [facility] RBC Auto (Bld) [#/Vol]Ordere d By: Savannah Romeo on 12-27-2023 RBC (Bld) [#/Vol] 4.97 10*6/uL 4.2-5.4 [facility] Serum cyclic citrullinated p eptide IgG antibody assay (units/volume)Ordered By: Savannah Romeo on 12-27-2023 Cyclic citrullinated peptide IgG Qn 8 units 0-19 [facility] Comment on above: Negative <20 Weak po sitive 20 - 39 Moderate positive 40 - 59 Strong positive >59Performed at: - [facility] Director: Leonel Warren PhD, Phone: [phone] Serum or plasma calcium carmela urement (mass/volume)Ordered By: Savannah Romeo on 12-27-2023 Calcium [Mass/Vol] 9.2 mg/dL 8.5-10.1 [facility] Serum or plasma creatinine m easurement (mass/volume)Ordered By: Savannah Romeo on 12-27-2023 Creatinine [Mass/Vol] 1.36 mg/dL 0.55-1.02 [facility] Comment on above: The validity of the calculated GFR & GFRAA in patients over 70 years has not been determined. Clinical correlation is essential. Serum or plasma urea nitroge n measurement (mass/volume)Ordered By: Savannah Romeo on 12-27-2023 Urea nitrogen [Mass/Vol] 26 mg/dL 7-18 [facility] Thin prep Papanicolaou smear with manual screeningOrdered By: Savannah Romeo on 12-27-2023 Thin prep Papanicolaou smear with manual screening 3.9 g/dL 3.2-5.0 [facility] Thin prep Papanicolaou smear with manual screening 20 U/L 15-37 [facility] Thin prep Papanicolaou smear with manual screening 5 5-15 [facility] Basophil percentageOrdered B y: Dr. Romeo on 03-08-2023 Chloride [Moles/Vol] 109 mmol/L 98-107 [facility] Glucose [Mass/Vol] 106 mg/dL 74-106 [facility] Comment on above: Fasting Glucose resu lt from 100 to 125 mg/dL suggests IMPAIRED HOMEOSTASIS per A.D.A. criteria. Potassium [Moles/Vol] 4.2 mmol/L 3.5-5.1 [facility] Sodium [Moles/Vol] 139 mmol/L 136-145 [facility] Laboratory - Chemistry and C hemistry - challengeOrdered By: Dr. Romeo on 03-08-2023 CO2 [Moles/Vol] 28.0 mmol/L 21.0-32.0 [facility] Urea nitrogen/Creatinine [Mass ratio] 19.0 mg/mg 10-20 [facility] No Panel InformationOrdered By: Dr. Romeo on 03-08-2023 Estimated GFR (MDRD) Amer 75 mL/min >60 [facility] Comment on above: GFR Calc Estimated GFR (MDRD) Non-Af Amer 62 mL/min >60 [facility] Comment on above: Non- GFR Calc Serum or plasma calcium carmela urement (mass/volume)Ordered By: Dr. Romeo on 03-08-2023 Calcium [Mass/Vol] 8.9 mg/dL 8.5-10.1 [facility] Serum or plasma creatinine m easurement (mass/volume)Ordered By: Dr. Romeo on 03-08-2023 Creatinine [Mass/Vol] 1.00 mg/dL 0.55-1.02 [facility] Comment on above: The validity of the calculated GFR & GFRAA in patients over 70 years has not been determined. Clinical correlation is essential. Serum or plasma urea nitroge n measurement (mass/volume)Ordered By: Dr. Romeo on 03-08-2023 Urea nitrogen [Mass/Vol] 19 mg/dL 7-18 [facility] Thin prep Papanicolaou smear with manual screeningOrdered By: Dr. Romeo on 03-08-2023 Thin prep Papanicolaou smear with manual screening 2 5-15 [facility] Laboratory - Microbiology an d Antimicrobial susceptibilityOrdered By: Dr. Romeo on 11-30-2022 SARS-CoV-2 (COVID-19) RNA DAVID+probe Ql (Unsp spec) Not detected Not Detect [facility] Comment on above: Normal Reference Ran ge: Not DetectedMethod:(RT-PCR) real-time reverse transcriptase PCRLuminex [employer] Instrument*The Food and Drug Administration (FDA) has issued an Emergency Use Authorization (EAU) for the [employer] SARS-CoV-2 Assay for the rapid detection of the virus that causes COVID-19. This test has been validated, but the FDAs independent review of this validation is pending.*Negative results do not preclude infection and should not be used as the sole basis for treatment or patient management. Optimum specimen types and timing for peak viral levels during infections caused by SARS-CoV-2 have not been determined. Collection of multiple specimens from the same patient may be necessary to detect the virus. The possibility of a false negative result should be considered if the patient has clinical presentation or has had recent exposure. No Panel Informationon 11-30 Influenza Types A,B Rapid (Clinic) Negative [facility] Cervical or vagninal specime n microscopic examination by cytology stain (reported asOrdered By: Dr. Torres on 11-23-2022 Cytology report Cyto stain Doc (Cvx/Vag) Comment . [facility] Comment on above: The Pap smear is a s creening test designed to aid in thedetection of premalignant and malignant conditions of theuterine cervix. It is not a diagnostic procedure andshould not be used as the sole means of detecting cervicalcancer. Both false-positive and false-negative reports dooccur. Detection in cervical specim en of any of human papilloma virus (HPV) 16, 18, 31, 33,Ordered By: Dr. Torres on 11-23-2022 HPV 16+18+31+33+35+39+45+5 1+52+56+58+59+66+68 DNA Probe+sig amp Ql (Cvx) Negative Negative [facility] Comment on above: This nucleic acid am plification test detects fourteen high- risk HPV types (16,18,31,33,35,39,45,51,52,56,58,59,66,68)without differentiation. Laboratory - CytologyOrdered By: Dr. Torres on 11-23-2022 Marketing Development Specialist Cyto stain Nom (Cvx/Vag) [ID] Comment . [facility] Comment on above: Dylon Simmons, Cyto technologist (ASCP) Laboratory - Miscellaneous t estsOrdered By: Dr. Torres on 11-23-2022 Service comment (Unsp spec) [Interp] Comment . [facility] Comment on above: This liquid based Th inPrep(R) pap test was screened withthe use of an image guided system. Service comment (Unsp spec) [Interp] . . [facility] Liquid-based cerv Pap + CT/G C by DAVID w reflex to high-risk HPV for ASCUSOrdered By: Dr. Torres on 11-23-2022 Cytology report Cyto stain.thin prep Doc (Cvx/Vag) Comment . [facility] Comment on above: Criteria not met, HP V Genotype not performed.Performed at: [facility] - [facility] [id number] Director: Isi Wilde MD, Phone: [phone] at: =G - [facility] [id number] Director: Isi Wilde MD, Phone: [phone] No Panel InformationOrdered By: Dr. Torres on 11-23-2022 Pathology report final diagnosis Narrative Comment . [facility] Comment on above: NEGATIVE FOR INTRAEP ITHELIAL LESION OR MALIGNANCY. Absolute lymphocyte countOrd ered By: Dr. Romeo on 08-27-2022 Lymphocytes Auto (Unsp spec) [#/Vol] 1.75 10*3/uL 0.83-4.51 [facility] Basophil percentageOrdered B y: Dr. Romeo on 08-27-2022 Basophils/100 WBC (Bld) 0.8 % 0-1 [facility] Bilirubin [Mass/Vol] 0.40 mg/dL 0.20-1.00 [facility] Comment on above: For patients on eltr ombopag therapy, use of Dimension [place] TBIL is not recommended. Chloride [Moles/Vol] 104 mmol/L 98-107 [facility] Cholesterol [Mass/Vol] 191 mg/dL <200 [facility] Comment on above: <200 mg/dL Desirable 200-240 mg/dL Borderline >240 mg/dL High Risk Eosinophils/100 WBC (Bld) 1.0 % 0-5 [facility] Glucose [Mass/Vol] 93 mg/dL 74-106 [facility] Neutrophils (Bld) [#/Vol] 3.7 10*3/uL 2.0-7.7 [facility] Neutrophils/100 WBC (Bld) 63.2 % 47-70 [facility] Potassium [Moles/Vol] 3.8 mmol/L 3.5-5.1 [facility] Protein [Mass/Vol] 7.7 g/dL 6.4-8.2 [facility] Sodium [Moles/Vol] 139 mmol/L 136-145 [facility] Triglyceride [Mass/Vol] 229 mg/dL <199 [facility] Comment on above: The drugs N-Acetylcy steine and Metamizole may falsely depress this assay.Serum Triglycerides Reference Interval Normal <150 mg/dL Borderline high 150 - 199 mg/dL High 200 - 499 mg/dL Very High > or = 500 mg/dL WBC (Bld) [#/Vol] 5.9 10*3/uL 4.4-11.0 [facility] Blood erythrocytes count (nu mber/volume)Ordered By: Dr. Romeo on 08-27-2022 RBC (Bld) [#/Vol] 4.60 10*6/uL 4.2-5.4 [facility] Blood hemoglobin measurement (mass/volume)Ordered By: Dr. Romeo on 08-27-2022 Hemoglobin (Bld) [Mass/Vol] 13.1 g/dL 12.0-15.0 [facility] Blood lymphocytes/100 leukoc ytesOrdered By: Dr. Romeo on 08-27-2022 Lymphocytes/100 WBC (Bld) 29.5 % 19-41 [facility] Blood monocytes/100 leukocyt esOrdered By: Dr. Romeo on 08-27-2022 Monocytes/100 WBC (Bld) 5.2 % 0-10 [facility] Blood platelet mean volumeOr dered By: Dr. Romeo on 08-27-2022 Platelet mean volume (Bld) [Entitic vol] 10.4 fL 6.2-12.0 [facility] Determination of erythrocyte mean corpuscular volume (MCV)Ordered By: Dr. Romeo on 08-27-2022 MCV (RBC) [Entitic vol] 88.7 fL 81-99 [facility] Hematocrit Auto (Bld) [Volum e fraction]Ordered By: Dr. Romeo on 08-27-2022 Hematocrit (Bld) [Volume fraction] 40.8 % 37-47 [facility] Laboratory - Chemistry and C hemistry - challengeOrdered By: Dr. Romeo on 08-27-2022 ALP [Catalytic activity/Vol] 81 U/L 45-117 [facility] ALT [Catalytic activity/Vol] 38 U/L 13-56 [facility] CO2 [Moles/Vol] 27.0 mmol/L 21.0-32.0 [facility] Globulin (S) [Mass/Vol] 4.2 g/dL 2.2-4.2 [facility] Urea nitrogen/Creatinine [Mass ratio] 19.0 mg/mg 10-20 [facility] Laboratory - Hematology and Cell countsOrdered By: Dr. Romeo on 08-27-2022 Erythrocyte distribution width (RBC) [Entitic vol] 46.9 fL 35.1-43.9 [facility] Erythrocyte distribution width (RBC) [Ratio] 14.6 % 11.6-14.6 [facility] Immature granulocytes/100 WBC (Bld) 0.300 % 0.0-0.9 [facility] Comment on above: IG% - Immature Granu locytes (promyelocytes, myelocytes and metamyelocytes) > 1% indicates that a LEFT SHIFT is Present. MCH (RBC) [Entitic mass] 28.5 pg 27.0-32.0 [facility] Nucleated RBC/100 WBC (Bld) [Ratio] 0 % 0-5 [facility] MCHC Auto (RBC) [Mass/Vol]Or dered By: Dr. Romeo on 08-27-2022 MCHC (RBC) [Mass/Vol] 32.1 g/dL 32-36 [facility] No Panel InformationOrdered By: Dr. Romeo on 08-27-2022 Estimated GFR (MDRD) Amer 71 mL/min >60 [facility] Comment on above: GFR Calc Estimated GFR (MDRD) Non-Af Amer 59 mL/min >60 [facility] Comment on above: Non- GFR Calc Platelets bldOrdered By: Dr. Romeo on 08-27-2022 Platelets (Bld) [#/Vol] 290 10*3/uL 150-450 [facility] Serum or plasma albumin carmela urement (mass/volume)Ordered By: Dr. Romeo on 08-27-2022 Albumin [Mass/Vol] 3.5 g/dL 3.2-5.0 [facility] Serum or plasma albumin/glob ulin mass ratioOrdered By: Dr. Romeo on 08-27-2022 Albumin/Globulin [Mass ratio] 0.8 {ratio} 0.9-2.4 [facility] Serum or plasma calcium carmela urement (mass/volume)Ordered By: Dr. Romeo on 08-27-2022 Calcium [Mass/Vol] 9.1 mg/dL 8.5-10.1 [facility] Serum or plasma cholesterol in HDL measurement (mass/volume)Ordered By: Dr. Romeo on 08-27-2022 Cholesterol in HDL [Mass/Vol] 37 mg/dL >40 [facility] Comment on above: The drugs N-Acetylcy steine and Metamizole may falsely depress this assay. Reference Range HDL <40 mg/dL Low HDL Cholesterol HDL >or= 60 mg/dL High HDL Cholesterol Serum or plasma cholesterol in VLDL measurement (mass/volume)Ordered By: Dr. Romeo on 08-27-2022 Cholesterol in VLDL [Mass/Vol] 46 mg/dL 5-40 [facility] Serum or plasma creatinine m easurement (mass/volume)Ordered By: Dr. Romeo on 08-27-2022 Creatinine [Mass/Vol] 1.05 mg/dL 0.55-1.02 [facility] Comment on above: The validity of the calculated GFR & GFRAA in patients over 70 years has not been determined. Clinical correlation is essential. Serum or plasma low density lipoprotein (LDL) cholesterol measurement (mass/volume)Ordered By: Dr. Romeo on 08-27-2022 Cholesterol in LDL [Mass/Vol] 108 mg/dL 0-130 [facility] Serum or plasma urea nitroge n measurement (mass/volume)Ordered By: Dr. Romeo on 08-27-2022 Urea nitrogen [Mass/Vol] 20 mg/dL 7-18 [facility] Thin prep Papanicolaou smear with manual screeningOrdered By: Dr. Romeo on 08-27-2022 Thin prep Papanicolaou smear with manual screening 28 U/L 15-37 [facility] Thin prep Papanicolaou smear with manual screening 8 5-15 [facility] Basophil percentageon 2021 Chloride [Moles/Vol] 107 mmol/L 98-107 [facility] Work Phone: Glucose [Mass/Vol] 97 mg/dL 74-106 [facility] Work Phone: Potassium [Moles/Vol] 4.0 mmol/L 3.5-5.1 [facility] Work Phone: Sodium [Moles/Vol] 138 mmol/L 136-145 [facility] Work Phone: Laboratory - Chemistry and C hemistry - challengeon 04-13-2022 CO2 [Moles/Vol] 27.0 mmol/L 21.0-32.0 [facility] Work Phone: Urea nitrogen/Creatinine [Mass ratio] 21.3 mg/mg 10-20 [facility] Work Phone: No Panel Informationon 04-13 Estimated GFR (MDRD) Amer 69 mL/min >60 [facility] Work Phone: Comment on above: GFR Calc Estimated GFR (MDRD) Non-Af Amer 57 mL/min >60 [facility] Work Phone: Comment on above: Non- GFR Calc Serum or plasma calcium carmela urement (mass/volume)on 04-13-2022 Calcium [Mass/Vol] 9.1 mg/dL 8.5-10.1 [facility] Work Phone: Serum or plasma creatinine m easurement (mass/volume)on 04-13-2022 Creatinine [Mass/Vol] 1.08 mg/dL 0.55-1.02 [facility] Work Phone: Comment on above: The validity of the calculated GFR & GFRAA in patients over 70 years has not been determined. Clinical correlation is essential. Serum or plasma urea nitroge n measurement (mass/volume)on 04-13-2022 Urea nitrogen [Mass/Vol] 23 mg/dL 7-18 [facility] Work Phone: Thin prep Papanicolaou smear with manual screeningon 04-13-2022 Thin prep Papanicolaou smear with manual screening 4 5-15 [facility] Work Phone: EKGon 09-26-2021 Electrocardiogram Procedure Date and T niko: 09/26/21 1048 Test Reason : TACHYCARDIA Blood Pressure : / mmHG Vent. Rate : 091 BPM Atrial Rate : 091 BPM P-R Int : 146 ms QRS Dur : 072 ms QT Int : 346 ms P-R-T Axes : 055 035 052 degrees QTc Int : 425 ms Normal sinus rhythm Normal ECG When compared with ECG of 13-OCT-2006 03:16, No significant change was found Confirmed by GIOVANNI SHELTON A. ([id number]) on 09/26/2021 12:56:02 PM Referred By: Kiarra Guzman Confirmed By:Maura SHELTON M.D.FACC M.D. DDandT: 09/26/21 1048 TDandT: [facility] PATIENT NAME: WALLACE BAEZ Kimberly John MEDICAL REC #: [id number] [place] [address] ADMIT DATE: DISCHARGE DATE: ATTENDING PHY: Kiarra Guzman MD ELECTROCARDIOGRAM REPORT CLB cc: [facility] PAT[facility]: [facility] MEDICAL REC #: [id number] [place] [address] ADMIT DATE: DISCHARGE DATE: ATTENDING PHY: Kiarra Guzman MD ELECTROCARDIOGRAM REPORT Normal [facility] 09-26-2021 [facility] REPORT Normal [facility] DATE OF SERVICE: 07/2021 SUBJECTIVE: A 51-year-old with history of asthma [...] Lisinopril. 3. Albuterol. 4. Stress tension relief. [facility] PATIENT [facility]: [facility] MEDICAL REC #: [id number] [place] [address] [facility] REPORT STATCARE PHYSICIAN OBJECTIVE: Blood pressure is 161/85, pulse is 105, respirations 20, temperature is 99.3, pulse ox 99%. Ears within normal limits. Mouth; nonerythematous oropharynx. Neck: No lymphadenopathy. Heart: Regular, rate, and rhythm. Lungs: Clear to auscultation bilaterally. DIAGNOSIS: 1. High blood pressure. 2. Tachycardia. PLAN: EKG showed normal sinus rhythm. Her ventricular rate was 91. I told her to continue with vctc-ank-vdkypxh medications for congestion. She also needs to [...] that she does not use often either. Wtjj-gaj-pofnpfi medication for her symptoms and follow up with primary care doctor as soon as possible for followup of hypertension. [facility] PATIENT NAME: WALLACE BAEZ [address] [facility] [address] John MEDICAL REC #: [id number] [place] [address] [facility] REPORT STATCARE PHYSICIAN Kiarra Guzman MD [id number] SSI File#: [id number] END OF DOCUMENT / CHANGE LOG FOLLOWS Last Edited By Elec. Signed By Kiarra Guzman MD #Kiarra Lucas MD #NORMA on 09/29/2021 07:56 ET on 09/29/2021 07:56 ET Revision Number - 2 Verified/Reviewed by 09/29/21 0756 NORMA [facility] PATIENT NAME: WALLACE BAEZ [address] [facility] [address] John MEDICAL REC #: [id number] [place] [address] [facility] REPORT STATCARE PHYSICIAN Normal [facility] Vital Signs Date Time Vital Sign Value Performing Clinician Faci lity 03-19-2025 13:00-0400 Body temperature 98.7 [degF] Dylon Culp MD Work Phone: [facility] 03-19-2025 13:00-0400 Diastolic blood pressure 68 mm[Hg] Dylon Culp MD Work Phone: [facility] 03-19-2025 13:00-0400 Heart rate 74 /min Dylon Culp MD Work Phone: [facility] 03-19-2025 13:00-0400 Respiratory rate 15 /min Dylon Culp MD Work Phone: [facility] 03-19-2025 13:00-0400 SaO2% (BldA) [Mass fraction] 98 % Dylon Culp MD Work Phone: [facility] 03-19-2025 13:00-0400 Systolic blood pressure 116 mm[Hg] Dylon Culp MD Work Phone: [facility] 01-17-2024 08:46-0500 Body height 162.[address] Savannah Romeo Work Phone: [facility] 01-17-2024 08:46-0500 Body mass index (BMI) [Ratio] 32.1 kg/m2 Dr. Savannah Romeo Work Phone: [facility] 01-17-2024 08:46-0500 Body weight 84.[address] Savannah Romeo Work Phone: [facility] 12-27-2023 14:22-0500 Body height 162.[address] Savannah Romeo Work Phone: [facility] 12-27-2023 14:22-0500 Body mass index (BMI) [Ratio] 31.9 kg/m2 Dr. Savannah Romeo Work Phone: [facility] 12-27-2023 14:22-0500 Body temperature 96.6 [degF] Dr. Savannah Romeo Work Phone: [facility] 12-27-2023 14:22-0500 Body weight 84.[address] Savannah Romeo Work Phone: [facility] 12-27-2023 14:22-0500 Diastolic blood pressure 92 mm[Hg] Dr. Savannah Romeo Work Phone: [facility] 12-27-2023 14:22-0500 Heart rate 80 /min Dr. Savannah Romeo Work Phone: [facility] 12-27-2023 14:22-0500 Respiratory rate 14 /min Dr. Savannah Romeo Work Phone: [facility] 12-27-2023 14:22-0500 SaO2% (BldA) [Mass fraction] 100 % Dr. Savannah Romeo Work Phone: [facility] 12-27-2023 14:22-0500 Systolic blood pressure 134 mm[Hg] Dr. Savannah Romeo Work Phone: [facility] 03-08-2023 08:24-0400 Body height 162.[address] Savannah Romeo Work Phone: [facility] 03-08-2023 08:24-0400 Body mass index (BMI) [Ratio] 37.2 kg/m2 Dr. Savannah Romeo Work Phone: [facility] 03-08-2023 08:24-0400 Body temperature 96.1 [degF] Dr. Savannah Romeo Work Phone: [facility] 03-08-2023 08:24-0400 Body weight 98.[address] Savannah Romeo Work Phone: [facility] 03-08-2023 08:24-0400 Diastolic blood pressure 80 mm[Hg] Dr. Savannah Romeo Work Phone: [facility] 03-08-2023 08:24-0400 Heart rate 77 /min Dr. Savannah Romeo Work Phone: [facility] 03-08-2023 08:24-0400 Respiratory rate 18 /min Dr. Savannah Romeo Work Phone: [facility] 03-08-2023 08:24-0400 SaO2% (BldA) [Mass fraction] 96 % Dr. Savannah Romeo Work Phone: [facility] 03-08-2023 08:24-0400 Systolic blood pressure 104 mm[Hg] Dr. Savannah Romeo Work Phone: [facility] 11-30-2022 09:26-0500 Body temperature 96.6 [degF] Dr. Savannah Romeo Work Phone: [facility] 11-30-2022 09:26-0500 Body weight 98.[address] Savannah Romeo Work Phone: [facility] 11-30-2022 09:26-0500 Diastolic blood pressure 84 mm[Hg] Dr. Savannah Romeo Work Phone: [facility] 11-30-2022 09:26-0500 Heart rate 57 /min Dr. Savannah Romeo Work Phone: [facility] 11-30-2022 09:26-0500 Respiratory rate 18 /min Dr. Savannah Romeo Work Phone: [facility] 11-30-2022 09:26-0500 SaO2% (BldA) [Mass fraction] 94 % Dr. Savannah Romeo Work Phone: [facility] 11-30-2022 09:26-0500 Systolic blood pressure 118 mm[Hg] Dr. Savannah Romeo Work Phone: [facility] 11-23-2022 09:52-0500 Body height 162.[address] Savannah Romeo Work Phone: [facility] 11-23-2022 09:52-0500 Body mass index (BMI) [Ratio] 37.3 kg/m2 Dr. Savannah Romeo Work Phone: [facility] 11-23-2022 09:52-0500 Body weight 98.[address] Savannah Romeo Work Phone: [facility] 11-23-2022 09:52-0500 Diastolic blood pressure 84 mm[Hg] Dr. Savannah Romeo Work Phone: [facility] 11-23-2022 09:52-0500 Systolic blood pressure 148 mm[Hg] Dr. Savannah Romeo Work Phone: [facility] 08-27-2022 08:03-0400 Body height 162.[address] Savannah Romeo Work Phone: [facility] Work Phone: 08-27-2022 08:03-0400 Body mass index (BMI) [Ratio] 36.8 kg/m2 Dr. Savannah Romeo Work Phone: [facility] 08-27-2022 08:03-0400 Body temperature 98.3 [degF] Dr. Savannah Romeo Work Phone: [facility] 08-27-2022 08:03-0400 Body weight 97.[address] Savannah Romeo Work Phone: [facility] 08-27-2022 08:03-0400 Diastolic blood pressure 98 mm[Hg] Dr. Savannah Romeo Work Phone: [facility] 08-27-2022 08:03-0400 Heart rate 80 /min Dr. Savannah Romeo Work Phone: [facility] 08-27-2022 08:03-0400 Respiratory rate 16 /min Dr. Savannah Romeo Work Phone: [facility] 08-27-2022 08:03-0400 SaO2% (BldA) [Mass fraction] 96 % Dr. Savannah Romeo Work Phone: [facility] 08-27-2022 08:03-0400 Systolic blood pressure 130 mm[Hg] Dr. Savannah Romeo Work Phone: [facility] 04-13-2022 08:14-0400 Body height 162.[address] Savannah Romeo Work Phone: [facility] Work Phone: 04-13-2022 08:14-0400 Body mass index (BMI) [Ratio] 36.8 kg/m2 Dr. Savannah Romeo Work Phone: [facility] Work Phone: 04-13-2022 08:14-0400 Body temperature 98.3 [degF] Dr. Savannah Romeo Work Phone: [facility] Work Phone: 04-13-2022 08:14-0400 Body weight 97.[address] Savannah Romeo Work Phone: [facility] Work Phone: 04-13-2022 08:14-0400 Diastolic blood pressure 82 mm[Hg] Dr. Savannah Romeo Work Phone: [facility] Work Phone: 04-13-2022 08:14-0400 Heart rate 82 /min Dr. Savannah Romeo Work Phone: [facility] Work Phone: 04-13-2022 08:14-0400 Respiratory rate 14 /min Dr. Savannah Romeo Work Phone: [facility] Work Phone: 04-13-2022 08:14-0400 SaO2% (BldA) [Mass fraction] 99 % Dr. Savannah Romeo Work Phone: [facility] Work Phone: 04-13-2022 08:14-0400 Systolic blood pressure 134 mm[Hg] Dr. Savannah Romeo Work Phone: [facility] Work Phone: Encounters Encounter Date Encounter Type Care Provider Facility Start: 03-19-2025 End: 03-19-2025 ambulatory Dylon Culp MD Work Phone: [facility] Work Phone: Start: 03-19-2025 End: 03-19-2025 Patient encounter procedure Martinez FAITH -[facility] Work Phone: Start: 03-19-2025 End: 03-19-2025 ambulatory Prema Milton Facility:[facility] Start: 02-05-2025 End: 02-05-[address] Savannah Romeo MD Work Phone: [facility] Work Phone: Start: 02-05-2025 End: 02-05-2025 Patient encounter procedure Prema Milton COPYING MACHINE REPAIRER-C -[facility] Work Phone: Start: 02-05-2025 End: 02-05-2025 ambulatory Premamin Milton Facility:[facility] Start: 12-25-2024 End: 12-25-2024 Patient encounter procedure Prema Milton COPYING MACHINE REPAIRER-C -Laboratory, [facility] Start: 12-25-2024 End: 12-25-2024 ambulatory [facility] Facility:[facility] Start: 12-07-2024 End: 12-07-2024 ambulatory [facility] Facility:[facility] Start: 12-07-2024 End: 12-07-[address] Dylon Culp MD -Physical Therapy Work Phone: Start: 11-02-2024 End: 11-02-[address] Dylon Culp MD -[facility] Work Phone: Start: 11-02-2024 End: 11-02-2024 ambulatory Savannah Romeo Facility:[facility] Start: 10-24-2024 End: 10-24-2024 Patient encounter procedure Kenn FAITH -[facility] Work Phone: Start: 10-24-2024 End: 10-24-2024 ambulatory Kenn FAITH Facility:[facility] Start: 09-28-2024 End: 09-28-2024 ambulatory Kenn FAITH Facility:[facility] Start: 09-28-2024 End: 09-28-2024 ambulatory Kenn FAITH Facility:[facility] Start: 02-07-2024 End: 02-07-[address] Savannah Romeo Work Phone: [facility] Work Phone: Start: 02-07-2024 End: 02-07-[address] Savannah Romeo Work Phone: [facility]-Laboratory, [facility] Start: 01-24-2024 End: 01-24-[address] Savannah Romeo Work Phone: [facility] Work Phone: Start: 01-24-2024 End: 01-24-[address] Savannah Romeo Work Phone: [facility] Work Phone: Start: 01-17-2024 End: 01-17-[address] Savannah Romeo Work Phone: [facility] Work Phone: Start: 12-27-2023 End: 12-27-[address] Savannah Romeo Work Phone: [facility] Work Phone: Start: 12-27-2023 End: 12-27-2023 Encounter for general adult medical examination without abnormal findings Dr. Savannah Romeo Work Phone: [facility] Start: 12-27-2023 End: 12-27-[address] Savannah Romeo Work Phone: [facility] Work Phone: Start: 03-08-2023 End: 03-08-[address] Savannah Romeo Work Phone: [facility] Work Phone: Start: 03-08-2023 End: 03-08-[address] Savannah Romeo Work Phone: [facility] Start: 11-30-2022 End: 11-30-[address] Savannah Romeo Work Phone: [facility] Work Phone: Start: 11-30-2022 End: 11-30-[address] Savannah Romeo Work Phone: [facility]-Laboratory, Specimen Start: 11-30-2022 End: 11-30-[address] Savannah Romeo Work Phone: [facility] Start: 11-23-2022 End: 11-23-[address] Savannah Romeo Work Phone: [facility] Work Phone: Start: 11-23-2022 End: 11-23-[address] Savannah Romeo Work Phone: [facility]-Laboratory, Specimen Start: 11-23-2022 End: 11-23-[address] Saavnnah Romeo Work Phone: [facility] Start: 10-19-2022 End: 10-19-[address] Savannah Romeo Work Phone: [facility] Work Phone: Start: 10-19-2022 End: 10-19-[address] Savannah Romeo Work Phone: [facility] Start: 08-27-2022 End: 08-27-[address] Savannah Romeo Work Phone: [facility] Work Phone: Start: 08-27-2022 End: 08-27-2022 Encounter for general adult medical examination without abnormal findings Dr. Savannah Romeo Work Phone: [facility] Start: 08-27-2022 End: 08-27-[address] Savannah Romeo Work Phone: [facility] Start: 04-13-2022 End: 04-13-[address] Savannah Romeo Work Phone: [facility] Start: 09-28-2021 Patient encounter procedure Kiarra Guzman MD Work Phone: [facility] Start: 09-28-2021 Progress Note Kiarra cornejo MD Work Phone: [facility] Start: 08-18-[address] Savannah Romeo Work Phone: [facility] Procedures Date Procedure Procedure Detail Performing Clinician Start: 03-19-2025 X-ray of chest, PA a nd lateral views Dylon Culp MD Work Phone: Start: 02-05-2025 Screening mammography Anthony Romeo MD Work Phone: Start: 10-24-2024 MRI of joint of lowe r extremity Dr. Savannah Romeo MD Work Phone: Start: 01-24-2024 Screening mammography Anthony Romeo Work Phone: Start: 10-19-2022 Screening mammography Anthony Romeo Work Phone: Start: 09-26-2021 Ecg routine ecg w/le ast 12 lds i&r only Plan of Treatment Date Care Activity Detail Author Start: 11-02-2024 Patient referral [facility] Work Phone: Start: 12-27-2023 Patient referral [facility] Work Phone: MG Breast - bilateral Screening [facility] Work Phone: MG Breast - bilateral Screening [facility] Patient referral [facility] Work Phone: Payers Date Payer Category Payer Self-pay [id number] 2023 Unknown [id number] Unknown [id number] Unknown [id number] 2.16.8 [id number] Unknown [id number] 2.16.8 [id number] Unknown [id number] 2.16.8 [id number] Unknown [id number] 2.16.8 [id number] Unknown [id number] 2.16.8 [id number] Unknown [id number] 2.16.8 [id number] Unknown [id number] 2.16.8 [id number] Unknown [id number] 2.16.8 [id number] Unknown [id number] 2.16.8 [id number] Social History Date Type Detail Facility Start: 04-13-2022 End: 01-17-2024 Tobacco smoking status PAIS Unknown if ever smoked [facility] Start: 1970 Sex Assigned At Female [facility] Start: 1970 Sex Assigned At Not on file [facility] Start: 02-14[facility]24 [facility] Start: 02-12-2025 End: 03-24-2025 Sex Female (finding) [facility] Clinical Notes 09-28-2021 to 03-19-2025 Note Date & Type Note Facility 03-19-2025 Evaluation note Diagnosis Onset Date Resolution Acute bronchitis acute March 19, 2025 12:54pm [facility] Work Phone: 1(737) 132-414905-02-2025 Radiology Diagnostic study note [facility] Imaging Services [address] [place], [place] [address] Chest PA and Lateral MR#: [id number] Acct: [id number] Name: WALLACE BAEZ Rep #: [id number] : 1970 F 54 From: Lore Lizarraga MD PCP: SAMEERA Phillips Status: REG CLI Study:Chest PA and Lateral Date of Exam: 03/19/25 Exam# [id number] Ordering Dr: Aida Acuña PROCEDURE: CHEST PA AND LATERAL (RADCXR), 03/19/2025 REASON FOR EXAM: COUGH TECHNIQUE: PA and lateral views of the chest were obtained. COMPARISON: None FINDINGS: Heart: Unremarkable. Mediastinum: Unremarkable. Lungs/pleura: Slight hypoinflation with vascular crowding. No convincing focal consolidation. No pleural effusion or visible pneumothorax. Bones: Mild spondylosis. Lines and support devices: None. Other: None. RAD/Chest PA and Lateral IMPRESSION: 1. Slight hypoinflation without convincing or visible acute cardiopulmonary findings 2. Additional description as above. Reading Location: [id number] CC: COPYING MACHINE REPAIRER-Aida Milton; MARCELL Hinojosa ~ Manufacturing Management Associate: Signed [facility]12-16-2024 Evaluation note* Diagnosis Onset Date Resolution Status Admit Date Right rotator cuff tear acute D ecember 2023 7:45am Right shoulder pain acute Decem mode 2023 7:45am [facility] Work Phone: 1(672) 750-628401-06-2023 NotePap Smear Specimen AdequacyJanuary 2022 4:33pmComment.Satisfactory for evaluation. Endocervical and/or squamous metaplasticcells (endocervical component)are present.[facility] INTER[facility] A#[id number] HospitalComment on above:Satisfactory for evaluation. Endocervical and/or squamous metaplasticcells (endocervical component)are present.11-23-2022 NotePap Smear Specimen AdequacyJanuary 2022 4:33pmComment.Satisfactory for evaluation. Endocervical and/or squamous metaplasticcells (endocervical component)are present.[facility] A#[id number] HospitalCommarshfield medical center on above:Satisfactory for evaluation. Endocervical and/or squamous metaplasticcells (endocervical component)are present.11-23-2022 NotePap Smear Specimen AdequacyJanuary 2022 5:33pmComment.Satisfactory for evaluation. Endocervical and/or squamous metaplasticcells (endocervical component)are present.[facility] A#[id number] HospitalComment on above:Satisfactory for evaluation. Endocervical and/or squamous metaplasticcells (endocervical component)are present.09-28-2021 History of Present illness Narrative* Kiarra Guzman MD - 09/28/2021 12:35 PM EST DATE OF SERVICE: 09/26/2021 SUBJECTIVE: A 51-year-old [...] 91. I told her to continue with qwbf-weu-zqumqxk medications for congestion. She also needs to [...] that she does not use often either. Mspt-ile-xttcpzb medication for her symptoms and follow up with primary care doctor as soon as possible for followup of hypertension. Kiarra Guzman MD ED/[id number] SSI File#: [id number] END OF DOCUMENT / CHANGE LOG FOLLOWS Last Edited By Elec. Signed By Kiarra Guzman MD #Kiarra Lucas MD #NORMA on 09/29/2021 07:56 ET on 09/29/2021 07:56 ET Revision Number - 2 ^^^ Verified/Reviewed by 09/29/21 0756 NORMA [facility] PATIENT NAME: WALLACE BAEZ [facility] Dr[address] John MEDICAL REC #: [id number] [place] [address] [facility] REPORT STATCARE PHYSICIAN documented in this encounterO[facility]Fallon ClinicEvaluation note* Diagnosis Onset Date Resolution Status Arthritis chronic Asthma chronic Essential hypertension chron ic [facility] Work Phone: Evaluation note* Diagnosis Onset Date Resolution Status Preventative health care acu te [facility] Work Phone: Evaluation note* Diagnosis Onset Date Resolution Status Preventative health care acu te Encounter for routine gynecological examination noneactive URI (upper respiratory infection) acute Asthma chronic Essential hypertension chron [facility] Work Phone: Evaluation note* Diagnosis Onset Date Resolution Status Encounter for routine gynecological examination noneactive URI (upper respiratory infection) acute Asthma chronic Essential hypertension chron ic Colon cancer screening acute Asthma chronic Essential hypertension chron [facility] Work Phone: Evaluation note* Diagnosis Onset Date Resolution Status Preventative health care acu te Arthritis chronic Asthma chronic Essential hypertension chron ic [facility] Work Phone: Evaluation note* Diagnosis Onset Date Resolution Status [facility] health care acu te Arthritis chronic Asthma chronic Essential hypertension chron ic Trigger thumb, left thumb ac [place] Trigger thumb, right thumb a cute [facility] Work Phone: Reason for referral (narrative)No reason for referral information availableWWayne [facility] Work Phone: Summary Purpose Family History No Family History Records Found Relationship Condition Age at Onset Recorded Date/T niko Not Specified Alzheimer's dementia Unknown Disorder of liver Unknown Diabetes mellitus Unknown Arthritis Unknown Kidney disorder Unknown Myocardial infarction Unknown Malignant neoplasm of breast Unknown Malignant neoplasm Unknown Hypertension Unknown Venous thrombosis Unknown Cerebrovascular accident (CVA) Unknown Advance Directives No Advanced Directives Records FoundNo Advanced Directives Records Found Chief Complaint and Reason for Visit Chief Complaint 4 M FU Reason for Visit Arthritis Asthma Essential hypertension Chief Complaint 4 m fu Reason for Visit Preventative health care Chief Complaint 4 m fu SCREENING Reason for Visit Preventative health care Chief Complaint 4 m fu SCREENING 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) 3 M FU Reason for Visit Preventative health care Encounter for routine gynecological examination URI (upper respiratory infection) Asthma Essential hypertension Chief Complaint 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) 3 M FU 3 M FU Reason for Visit Encounter for routin e gynecological examination URI (upper respiratory infection) Asthma Essential hypertension Colon cancer screening Asthma Essential hypertension Chief Complaint MED FU Reason for Visit Preventative health care Arthritis Asthma Essential hypertension Chief Complaint MED FU BILATERAL THUMBS SCREENING Reason for Visit Preventative health care Arthritis Asthma Essential hypertension Trigger thumb, left thumb Trigger thumb, right thumb Chief Complaint Admit Date RIGHT ANTERIOR SHOULDER PAIN October 7:16am RIGHT SHOULDER November 02, 2024 7:45am R SHOULDER PAIN/RTC TEAR. RX HERE Jalyn hurst 2024 3:30pm SCREENING February 05, 2025 8:3 4am Reason for Visit Admit Date Right rotator cuff tear November 02 7:45am Right shoulder pain November 02, 2024 7:45am Chief Complaint Admit Date R SHOULDER PAIN/RTC TEAR. RX HERE Jalyn hurst 2024 3:30pm SCREENING February 05, 2025 8:3 4am COUGH March 19, 2025 12:54p m cough March 19, 2025 1:00pm Reason for Visit Admit Date Acute bronchitis March 19, 2025 12:54p m Additional Source Comments INFORMATION SOURCE (unrecogn ized section and content) DATE CREATED AUTHOR 12/31/2021 [facility] Karen [facility] DATE CREATED AUTHOR AUTHOR'S CARLOS CABRAL 03/24/2025 [facility] Goals (unrecognized section and content) Goals may be documented in a n alternate sectionGoals may be documented in an alternate sectionGoals may be documented in an alternate sectionGoals may be documented in an alternate sectionGoals may be documented in an alternate sectionGoals may be documented in an alternate sectionGoals may be documented in an alternate sectionGoals may be documented in an alternate sectionGoals may be documented in an alternate sectionGoals may be documented in an alternate sectionGoals may be documented in an alternate section Source Comments (unrecognize d section and content) In the event this informatio n is protected by the Federal Confidentiality of Alcohol and Drug Abuse Patient Records regulations: The Federal rules restrict any use of the information to criminally investigate or prosecute any alcohol or drug abuse patient.[facility] Care Teams (unrecognized sec tion and content) Team Status: Active Member Role Status Dates Dr. Savannah Romeo MD Primary Care Provider Active Team Status: Inactive Member Role Status Dates Dr. Savannah Romeo MD Primary Care P rovider, Attending Provider, Referring Provider Active Team Status: Inactive Member Role Status Dates Dr. Savannah Romeo MD Primary Care Provider, Refer ring Provider Active Dr. Matilde Mo DO Attending Provider Activ e Team Status: Inactive Member Role Status Dates Dr. Savannah Romeo MD Primary Care Provider Active Dr. Matilde Mo DO Attending Provider Activ e Team Status: Active Member Role Status Dates Dr. Savannah Romeo MD Primary Care P rovider, Attending Provider, Referring Provider Active Team Status: Inactive Member Role Status Dates Dr. Savannah Romeo MD Primary Care Provider, Refer ring Provider Active Dylon Culp MD Attending Provider Active Team Status: Active Member Role Status Dates SAMEERA Phillips Primary Care Provider Active Team Status: Inactive Member Role Status Dates Dr. Savannah Romeo MD Primary Care Provider Active Start: October 24, 2024 End: October 24, 2024 Kenn FAITH PA Attending Provider Active Start: October 24, 2024 End: October 24, 2024 Kenn FAITH PA Referring Provider Active Start: October 24, 2024 End: October 24, 2024 Team Status: Inactive Member Role Status Dates Dr. Savannah Romeo MD Primary Care Provider Active Start: November 02, 2024 End: November 02, 2024 Dr. Savannah Romeo MD Referring Provider Active Start: November 02, 2024 End: November 02, 2024 Dylon Culp MD Attending Provider Active St art: November 02, 2024 End: November 02, 2024 Team Status: Inactive Member Role Status Dates Dylon Culp MD Attending Provider Active St art: December 07, 2024 End: December 07, 2024 Dylon Culp MD Referring Provider Active St art: December 07, 2024 End: December 07, 2024 SAMEERA Phillips Primary Care Provider Active Start: December 07, 2024 End: December 07, 2024 Team Status: Inactive Member Role Status Dates SAMEERA Phillips Primary Care Provider Active Start: December 25, 2024 End: December 25, 2024 SAMEERA Phillips Attending Provider Active St art: December 25, 2024 End: February 7th, 2025 Team Status: Inactive Member Role Status Dates Prema Milton , COPYING MACHINE REPAIRER-C Primary Care Provider Active Start: February 05, 2025 End: February 05, 2025 Prema Milton COPYING MACHINE REPAIRER-C Attending Provider Active St art: February 05, 2025 End: February 05, 2025 Premamin Milton , COPYING MACHINE REPAIRER-C Referring Provider Active St art: February 05, 2025 End: February 05, 2025 Team Status: Inactive Member Role Status Dates Prema Milton COPYING MACHINE REPAIRER-C Primary Care Provider Active Start: March 19, 2025 End: March 19, 2025 Prema Milton COPYING MACHINE REPAIRER-C Referring Provider Active St art: March 19, 2025 End: March 19, 2025 MARCELL Maher Attending Provider Active Sta rt: March 19, 2025 End: March 19, 2025 Team Status: Inactive Member Role Status Dates Prema Milton COPYING MACHINE REPAIRER-C Primary Care Provider Active Start: March 19, 2025 End: March 19, 2025 MARCELL Maher Attending Provider Active Sta rt: March 19, 2025 End: March 19, 2025 MARCELL Maher Referring Provider Active Sta rt: March 19, 2025 End: March 19, 2025 FOR RECORDS PERTAINING TO PATIENTS WHO ARE [...] BE BASED ON THE PRIMARY CLINICAL RECORDS. [employer] provides no warranty or guarantee of the accuracy or completeness of information in this document.
[2025-08-21 08:09] LABS: Hematocrit 42.6 % (37-47); Hemoglobin 13.9 g/dL (12.0-15.0); Immature Granulocytes Count 0.020 X10^3/uL (0.0-0.0); Mean Corp Hgb Conc 32.6 g/dL (32-36); Mean Corpuscular Volume 86.6 fL (81-99); Mean Platelet Vol. 10.0 fl (6.2-12.0); NRBC Flagged by Analyzer 0 % (0-5); Platelet Count 312 K/mm3 (150-450); RBC Distribution Width CV 14.5 % (11.6-14.6); RBC Distribution Width SD 45.4 fl (35.1-43.9); Red Blood Count 4.92 M/mm3 (4.2-5.4); White Blood Count 7.8 K/mm3 (4.4-11.0)
[2025-08-21 09:29] LABS: Cholesterol 242 mg/dL (<=200); Low Density Lipoprotein Calc. 147 mg/dL; Triglycerides 249 mg/dL; Very Low Density Lipoprotein 50 mg/dL (5-40); cholesterol:hdl ratio screen 5.37
[2025-08-21 09:49] LABS: AST(SGOT) 27 U/L (<=31); Alanine Aminotransfer ALT/SGPT 19 U/L (<=34); Albumin, Serum 4.5 g/dL (3.5-5.0); Alkaline Phosphatase 75 U/L (35-104); Anion Gap 14 (5-15); BUN 23 mg/dL (4-19); BUN/Creat Ratio 21.6 RATIO (10-20); Calcium,Total 10.1 mg/dL (7.6-11.0); Carbon Dioxide 23.7 mmol/L (21.0-32.0); Chloride 103 mmol/L (98-108); Globulin 3.2 g/dL (2.2-4.2); Glucose 97 mg/dL (70-99); Potassium 4.3 mmol/L (3.3-5.1)
== END | disposition home or self-care (01) ==
LOC: LAB 07:03
PROVIDERS: PCP Nurse Practitioner Family; Referring Provider Nurse Practitioner Family; Visit Provider Nurse Practitioner Family
DX: Z00.01 Encounter for general adult medical examination with abnormal findings (principal)
CPT/HCPCS: 36415; 80053; 80061; 85025